=== PATIENT | male | born 1930 | race Caucasian/White ===

== ENCOUNTER 2016-03-20 18:06 | Emergency (ER) | payer OTHER, MEDICARE ==
[~2016-03-20] VITALS: Ht 167.6 cm; Wt 73.9 kg
[~2016-03-20 18:06] MED LIST: AMIODARONE HCL200 MG PO; ANTIVERT 25MG #1 PAC PO; CENTRUM SILVER1 TAB PO; DIGOX0.125 MG PO; LOSARTAN POTASS25 MG PO; METOPROLOL SUCC50 M1 PO; OMEGA-31000 MG PO; PRAVASTATIN SOD40 MG PO; VITAB121000 PO; VITAMIN D31000 IU PO; WARFARIN SODIUM1 MG PO
--- NOTE | 2016-03-20 18:45 | ED GENERAL ADULT ---
History of Present Illness General Chief Complaint: General Adult Stated Complaint: SENT BY FOR HIGH BP/ FELL IN [facility] Source: patient Exam Limitations: patient's age Vital Signs & Intake/Output Vital Signs & Intake/Output Vital Signs Date Time Temp Pulse Resp B/P Pulse O2 O2 Flow FiO2 Ox Delivery Rate 03/207 62 178/86 03/20 2057 96.4 59 18 184/88 95 Room Air 03/20 1904 97.0 78 20 206/95 96 Room Air 03/20 1827 97.7 77 20 167/88 96 Room Air Allergies Coded Allergies: NO KNOWN ALLERGIES (08/24/14) Reconcile Medications AMIODARONE HCL (Amiodarone HCl) 200 MG TABLET 1 TAB PO DAILY HEART (Reported) Carbidopa/Levodopa (Carbidopa-Levodopa 25-100 Tab) 25 MG-100 MG TABLET 1 TAB PO BID BALANCE (Reported) Cholecalciferol (Vitamin D3) (Unknown Strength) TAB (Unknown Dose) PO DAILY SUPPLEMENT (Reported) Cyanocobalamin (Vitamin B-12) (Unknown Strength) TABLET (Unknown Dose) PO DAILY SUPPLEMENT (Reported) Digoxin (Digox) 125 MCG TABLET 1 TAB PO EOD HEART (Reported) Losartan Potassium 25 MG TABLET 1 TAB PO DAILY BP (Reported) Losartan Potassium (Cozaar) 25 MG TABLET 1 TAB PO BID hypertension Metoprolol Succinate (Metoprolol Succinate XL) 50 MG TAB.ER.24H 1 TAB PO DAILY HEART/BP (Reported) Multivitamin and Ruthsyxy898 (Centrum Silver) 1 TAB TAB 1 TAB PO DAILY SUPPLEMENT (Reported) OMEGA-3 FATTY ACIDS/FISH OIL ([place] 3 1,000 MG Softgel) (Unknown Strength) CAPSULE (Unknown Dose) PO DAILY SUPPLEMENT (Reported) Pravastatin Sodium 40 MG TABLET 1 TAB PO QPM CHOLESTEROL (Reported) Warfarin Sodium 1 MG TABLET 1 TAB PO DAILY BLOOD THINNER (Reported) Triage Note: PT TO ED FOR C/O HTN. PT WENT TO URGENT CARE FOR HIGH BP. PT SENT TO ED FOR FURTHER EVAL OF BP. CURRENT BP 166/87. PT DENIES PAIN, C/P. ONLY COMPLAINT IS "FEELING GROGGY." PT ALSO STATES UPON WALKING INTO ED HE TRIPPED OVER THE CURB AND FELL, HITTING HIS HEAD ON THE GROUND. DENIED LOC. ABRASION NOTED ABOVE LEFT EYE AND TO RIGHT HAND. PT TAKES COUMADIN DAILY. LAST TETANUS SHOT A COUPLE YEARS AGO. Triage Nurses Notes Reviewed? yes Onset: Abrupt Duration: hour(s): Timing: recent history HPI: 03/20/16 7 PM 85-year-old man presents to the emergency department for elevated blood pressure. According to the patient he has a history of prostate cancer he is status post radiation therapy. Today he saw Dr. White and his PSA had come down but his blood pressure was noted to be elevated. He actually also went to an urgent care center for a medical appointment and his blood pressure was found to be elevated and it was recommended that he be checked in the Emergency Department. He has no chest pain no shortness of breath or other complaints. He is on Coumadin. He actually fell tripping on a curb on his way to the hospital. There was no chest pain, syncope, or other complaints. No neck pain. Because he is on Coumadin CT scan of the head was done which was negative. CT scan of the neck was negative. Troponin is negative EKG shows paced beats that are unchanged. The onset of the symptoms were abrupt, the duration was just today, the severity is significant as his symptoms required to come to the emergency department for care. His vital signs are stable, he's afebrile. He does have a moderately elevated blood pressure but is asymptomatic relative to this. His labs are unchanged and his troponin is negative. I will increase his Losartan and her will follow-up with his doctor this week. Past History Travel History Traveled to [place] past 21 day No Medical History Any Pertinent Medical History? 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 No Review of Systems Review of Systems Constitutional: Denies: fever. EENTM: Denies: visual changes, eye pain. Respiratory: Denies: short of breath. Cardiovascular: Denies: chest pain. GI: Denies: abdominal pain. Genitourinary: Reports: no symptoms. Musculoskeletal: Reports: no symptoms. Skin: Denies: rash. Neurological/Psychological: Denies: headache. Hematologic/Endocrine: Reports: bruising. Immunologic/Allergic: Reports: no symptoms. Physical Exam Physical Exam General Appearance: well developed/nourished, no apparent distress, alert, awake , anxious Head: contusions Eyes: Bilateral: normal appearance, PERRL, EOMI. Ears, Nose, Throat: normal pharynx Neck: normal inspection, supple, full range of motion Respiratory: normal breath sounds, chest non-tender, no respiratory distress Cardiovascular: regular rate/rhythm Peripheral Pulses: 4+ radial (R), 4+ radial (L) Gastrointestinal: non-tender Back: decreased range of motion Extremities: no edema Neurologic/Psych: no motor/sensory deficits, awake, alert, oriented x 3, normal gait Skin: intact, normal color, warm/dry Core Measures ACS in differential dx? No CVA/TIA Diagnosis: No Severe Sepsis Present: No Septic Shock Present: No Progress Differential Diagnoses I considered the following diagnoses in my evaluation of the patient: [ Intracranial bleed, skull fracture, hypertensive crisis, hypertensive urgency, asymptomatic hypertension] Plan of Care: Orders Procedure Date/time Status Add-on Test (ER Only) 03/20 2146 Active Add-on Test (ER Only) 03/20 2021 Active PARTIAL THROMBOPLASTIN TIME 03/20 1936 Complete DIGOXIN 03/20 1936 Complete PROTHROMBIN TIME 03/20 1926 Complete COMPREHENSIVE METABOLIC PANEL 03/20 1926 Complete CBC WITHOUT DIFFERENTIAL 03/20 1926 Complete EKG 03/20 1926 Active Current Medications Sig/Daniel Start time Last Medication Dose Stop Time Status Admin Losartan Potassium 25 MG ONCE ONE 03/20 2199 CAN (Cozaar) 03/20 2200 Laboratory Tests 03/20/161936: Anion Gap 13, Estimated GFR 48 L, BUN/Creatinine Ratio 21.4, Glucose 90, Calcium 9.3, Total Bilirubin 0.7, AST 67 H, ALT 81 H, Alkaline Phosphatase 70, Total Protein 7.1, Albumin 4.1, Globulin 3.0, Albumin/Globulin Ratio 1.4, PT 27.0 H, INR 2.60 H, APTT 35, CBC w Diff NO MAN DIFF REQ, RBC 3.91 L, MCV 102.9 H, MCH 34.4 H, RDW 14.2, MPV 7.8, Gran % 80.6 H, Lymphocytes % 10.3 L, Monocytes % 8.6, Eosinophils % 0.3, Basophils % 0.2, Absolute Granulocytes 4.7, Absolute Lymphocytes 0.6 L, Absolute Monocytes 0.5, Absolute Eosinophils 0, Absolute Basophils 0, PUBS MCHC 33.4, Digoxin 1.0 Initial ED EKG: paced rhythm Prior EKG: unchanged Departure Departure Disposition: HOME OR SELF CARE Condition: Stable Clinical Impression Primary Impression: Head injury Secondary Impressions: Hypertension Referrals: MARIA ELENA PELAEZ MD (PCP/Family) Departure Forms: Customer Survey General Discharge Information Prescriptions: Current Visit Scripts Losartan Potassium (Cozaar) 1 TAB PO BID #30 TAB Comments The patient's last blood pressure was 178/86. He remained asymptomatic in the ED. Head CT and labs were unremarkable. He will follow-up with his primary care doctor in the next 72 hours. Delayed head injury instructions were given. His head injury was secondary to a mechanical slip and fall. There was no chest pain. There was no shortness of breath. He does have chronic dizziness. There was no headache. Critical Care Note Critical Care Note Critical Care Time: non-applicable
[2016-03-20] MEDS ORDERED: CARBIDOPA-LEVO1 EAC7 PO (19:08)
[2016-03-20 19:49] LABS: ABSOLUTE BASOPHIL COUNT 0 /CUMM (0.0-0.2); ABSOLUTE EOSINOPHIL COUNT 0 /CUMM (0.0-0.7); ABSOLUTE GRANULOCYTE CT 4.7 /CUMM (1.4-6.5); ABSOLUTE LYMPH COUNT 0.6 /CUMM (1.2-3.4); ABSOLUTE MONOCYTE COUNT 0.5 /CUMM (0.10-0.60); BASOPHIL % 0.2 % (0.0-2.0); EOSINOPHIL % 0.3 % (0-5); GRANULOCYTE % 80.6 % (42.2-75.2); HEMATOCRIT 40.2 % (42-52); MEAN CORPUSCULAR HGB 34.4 PG (27.0-31.0); MEAN CORPUSCULAR HGB CONC 33.4 G/DL (33.0-37.0); MEAN CORPUSCULAR VOLUME 102.9 FL (80.0-94.0); MEAN PLATELET VOLUME 7.8 FL (7.4-10.4); PLATELET COUNT 204 /CUMM (130-400); RBC DISTRIBUTION WIDTH 14.2 % (11.5-14.5); RED BLOOD CELL CT 3.91 /CUMM (4.70-6.10); WHITE BLOOD CELL COUNT 5.8 /CUMM (4.8-10.8)
--- NOTE | 2016-03-20 20:20 | CT SCAN REPORT ---
EXAMINATION: CT HEAD WITHOUT CONTRAST CLINICAL INFORMATION: Head trauma on Coumadin. COMPARISON: CT head 08/24/2014 TECHNIQUE: Contiguous axial imaging was performed from the skull base to vertex without intravenous administration of contrast. FINDINGS: There is no evidence of acute intracranial hemorrhage or territorial infarction. No abnormal mass effect or midline shift is seen. Mcfarland to white matter differentiation is well preserved. No extra-axial fluid collections are identified. There is atrophy with prominence of the ventricles and the sulci and hypodensity of the periventricular white matter due to chronic small vessel ischemic disease. There is vascular calcifications of the internal carotid arteries bilaterally. The osseous structures and soft tissues are normal. The mastoid air cells and visualized portions of the paranasal sinuses are well aerated. IMPRESSION: No acute intracranial pathology.
--- NOTE | 2016-03-20 20:31 | CT SCAN REPORT ---
EXAMINATION: CT CERVICAL SPINE WITHOUT CONTRAST CLINICAL INFORMATION: Trauma. COMPARISON: Thoracic spine 09/18/2006. TECHNIQUE: Axial images through cervical spine. Coronal and sagittal reformatted images performed at CT scanner FINDINGS: No acute change. No fracture. No subluxation. No prevertebral soft tissue swelling. Multilevel degenerative change. There are subchondral cystic changes of the dens at C1-C2 articulation. Marked disc height narrowing at C2-C3 with endplate spurs and subchondral sclerosis of bone. There is bony fusion of C3-C6. Orthopedic plate and screw at C5 and C6 anteriorly. Vacuum disc phenomenon C6-C7. Fusion of C7-T1 vertebrae. Disc height narrowing at T1-T2. Vacuum disc phenomena with minimal anterolisthesis at T2-T3. Multilevel degenerative facet joint arthrosis. There is been resection of the posterior spinous process with laminectomy at C6. Posterior spinous process of T2 not seen may be surgically resected as well. Correlate with history. IMPRESSION: No acute change. Multilevel degenerative change of the spine. Postsurgical changes of cervical spine.
[2016-03-20 20:44] LABS: PTT 35 SEC (25-37)
[2016-03-20] MEDS ORDERED: COZAAR25 M1 PO (21:27)
[2016-03-20 21:47] VITALS: BP 178/86
== END 2016-03-20 21:48 ==
LOC: ERH 18:06
PROVIDERS: Emergency Medicine
DX: S09.90XA Unspecified injury of head, initial encounter (principal); I10 Essential (primary) hypertension; Z79.01 Long term (current) use of anticoagulants; W18.09XA Striking against other object with subsequent fall, initial encounter; E78.5 Hyperlipidemia, unspecified; Z95.0 Presence of cardiac pacemaker; Z79.899 Other long term (current) drug therapy
CPT/HCPCS: 93005; 93010

== ENCOUNTER 2017-10-11 09:42 | Inpatient (IN) | payer OTHER, MEDICARE ==
[~2017-10-11] VITALS: Ht 167.6 cm; Wt 72.6 kg
[~2017-10-11 09:42] MED LIST changes: +CARBIDOPA-LEVO1 EAC7 PO; +CENTRUM SILVER1 EAC3 PO; -CENTRUM SILVER1 TAB PO; +COUMADIN1 M1 PO; +COZAAR25 M1 PO; -DIGOX0.125 MG PO; +DIGOXIN125 MCG PO; -LOSARTAN POTASS25 MG PO; -METOPROLOL SUCC50 M1 PO; +METOPROLOL SUCC50 M2 PO; +OMEGA 3 1,0001 EACH PO; -OMEGA-31000 MG PO; +PRAVASTATIN SOD40 M2 PO; -PRAVASTATIN SOD40 MG PO; -VITAB121000 PO; +VITAMIN B-121000 MC3 PO; -VITAMIN D31000 IU PO; +VITAMIN D31000 UNI1 PO; -WARFARIN SODIUM1 MG PO
--- NOTE | 2017-10-11 10:40 | ED GENERAL ADULT ---
History of Present Illness General Chief Complaint: General Adult Stated Complaint: ? RECTAL BLEEDING Source: patient Exam Limitations: no limitations Vital Signs & Intake/Output Vital Signs & Intake/Output Vital Signs Date Time Temp Pulse Resp B/P B/P Pulse O2 O2 Flow FiO2 Mean Ox Delivery Rate 10/11 1134 98.4 84 17 149/75 99 Room Air 10/11 0948 97.8 90 18 130/80 97 Room Air Room Air Allergies Coded Allergies: NO KNOWN ALLERGIES (08/24/14) Reconcile Medications Carbidopa/Levodopa (Carbidopa-Levodopa 25-100 Tab) 25 MG-100 MG TABLET 1 TAB PO BID BALANCE (Reported) Cholecalciferol (Vitamin D3) (Vitamin D3) (Unknown Strength) CAPSULE (Unknown Dose) PO DAILY SUPPLEMENT (Reported) Cyanocobalamin (Vitamin B-12) (Unknown Strength) TABLET (Unknown Dose) PO DAILY SUPPLEMENT (Reported) Digoxin 125 MCG TABLET 1 TAB PO EOD HEART (Reported) Furosemide (Lasix) 40 MG TABLET 1 TAB PO DAILY DIURETIC (Reported) Gluc 2KCL/Chondr/Tiffany Hy/Hy AC (Glucosamine & Chondroitin Cap) (Unknown Strength ) CAPSULE (Unknown Dose) PO DAILY SUPPLEMENT (Reported) Losartan Potassium (Cozaar) 25 MG TABLET 1 TAB PO DAILY BP (Reported) Metoprolol Succinate 50 MG TAB.ER.24H 1.5 TAB PO DAILY HEART/BP (Reported) Multivit-Min/FA/Lycopen/Lutein (Centrum Silver Tablet) 0.4 MG-300 MCG-250 MCG TABLET 1 TAB PO DAILY SUPPLEMENT (Reported) [place]iqua-3 Fatty Acids/Fish Oil ([place] 3 1,000 MG Softgel) (Unknown Strength) CAPSULE (Unknown Dose) PO TID SUPPLEMENT (Reported) Pravastatin Sodium 40 MG TABLET 1 TAB PO DAILY CHOLESTEROL (Reported) Sacubitril/Valsartan (Entresto 49 MG-51 MG Tablet) 49 MG-51 MG TABLET 1 TAB PO BID HEART (Reported) Warfarin Sodium (Coumadin) 1 MG TABLET 1 TAB PO AD BLOOD THINNER (Reported) Triage Note: TRIAGE: 87 Y/O MALE PRESENTS C/O DARK RED RECTAL BLEEDING SINCE THIS MORNING. DENIES HISTORY OF SIMILAR. PMHX OF AFIB. HAS A DEFIB. ON COUMADIN: 1MG DAILY, WITH EXCEPTION OF 2MG ON MONDAYS AND SATURDAYS Triage Nurses Notes Reviewed? yes HPI: 87-year-old male comes in complaining that he woke up with blood in his underpants. The patient is on Coumadin for A. fib. He denies being dizzy or lightheaded. The patient denies abdominal pain, nausea, vomiting. The patient denies fever or chills. The patient denies any history of GI bleed or hemorrhoids. Past History Travel History Traveled to [place] past 21 day No Medical History Any Pertinent Medical History? 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 Yes Review of Systems Review of Systems Constitutional: Denies: chills, diaphoresis, fever. EENTM: Denies: blurred vision, double vision, visual changes. Respiratory: Denies: cough, hemoptysis, orthopnea. Cardiovascular: Denies: chest pain, edema, orthopena. GI: Reports: bloody stool. Denies: abdominal pain, bloating, constipation. Genitourinary: Denies: discharge, dysuria, frequency, hematuria. Musculoskeletal: Denies: back pain, gout. Skin: Denies: cysts, change in skin color, change in hair/nails. Neurological/Psychological: Denies: anxiety, ataxia, cognitive dysfunction. Physical Exam Physical Exam General Appearance: well developed/nourished, no apparent distress, alert, awake Head: atraumatic, normal appearance Eyes: Bilateral: PERRL, EOMI. Ears, Nose, Throat: normal pharynx, normal ENT inspection Neck: normal inspection, supple Respiratory: normal breath sounds, chest non-tender, no respiratory distress Cardiovascular: regular rate/rhythm, edema Gastrointestinal: normal bowel sounds, soft, non-tender Rectal: normal rectal tone, blood streaked stool Extremities: normal inspection, normal capillary refill Neurologic/Psych: no motor/sensory deficits, awake, alert, oriented x 3 Skin: intact, normal color, warm/dry Core Measures ACS in differential dx? No CVA/TIA Diagnosis: No Sepsis Present: No Sepsis Focused Exam Completed? No Progress Differential Diagnoses 87-year-old presents with rectal bleed, he is on Coumadin. Vital signs are currently stable. We will check INR and hemoglobin. Plan of Care: Orders Procedure Date/time Status Nothing by Mouth 10/11 D Active ED Holding Orders 10/11 1207 Active Admit to inpatient 10/11 1207 Active Code Status 10/11 1207 Active TROPONIN LEVEL 10/11 1041 Complete PROTHROMBIN TIME 10/11 1041 Complete COMPREHENSIVE METABOLIC PANEL 10/11 1041 Complete CBC WITHOUT DIFFERENTIAL 10/11 1041 Complete TYPE & SCREEN (NOT X-MATCH) 10/11 1041 Complete EKG 10/11 1017 Active Current Medications Sig/Daniel Start time Last Medication Dose Stop Time Status Admin Sodium Chloride 1,000 ML Q10H 10/11 1045 AC 10/11 (Normal Saline 0.9%) 1048 Laboratory Tests 10/11/17 1040: Anion Gap 10, Estimated GFR 52 L, BUN/Creatinine Ratio 21.5, Glucose 104 H, Calcium 9.2, Total Bilirubin 0.5, AST 27, ALT 19 L, Alkaline Phosphatase 57, Troponin I 0.01, Total Protein 6.4, Albumin 3.6, Globulin 2.8, Albumin/Globulin Ratio 1.3, PT 20.9 H, INR 1.90 H, CBC w Diff NO MAN DIFF REQ, RBC 3.51 L, MCV 104.5 H, MCH 35.1 H, MCHC 33.5, RDW 13.8, MPV 8.5, Gran % 65.4, Lymphocytes % 21.0, Monocytes % 11.8 H, Eosinophils % 1.4, Basophils % 0.4, Absolute Granulocytes 3.1, Absolute Lymphocytes 1.0 L, Absolute Monocytes 0.6, Absolute Eosinophils 0.1, Absolute Basophils 0 Initial ED EKG: see below Comments: a fib, rate @ 80, changes consistent with pacing. Compared to the EKG from March 20, 2016: No significant changes. 1207 stable blood pressure, stable hemoglobin. Will admit the patient. We will not give FFP's because that might precipitate a stroke. We will admit him to the hospitalist service. Departure Departure Disposition: STILL A PATIENT Condition: Stable Clinical Impression Primary Impression: GI bleed Referrals: Dorian Fuentes MD (PCP/Family) Departure Forms: Customer Survey General Discharge Information Admission Note Spoke With: Antonio Marr MD Documentation of Exam: Documentation of any treatments & extenuating circumstances including Concerns Regarding Discharge (functional status, medication knowledge or non-compliance, living conditions, etc.) that warrant an admission rather than observation: GI bleed on Coumadin, likely needing colonoscopy Critical Care Note Critical Care Note Critical Care Time: non-applicable
[2017-10-11] MEDS ORDERED: ENTRESTO 49 MG1 EACH PO (11:00)
[2017-10-11] MEDS ORDERED: LASIX40 M1 PO (11:01)
[2017-10-11 11:05] LABS: ABSOLUTE BASOPHIL COUNT 0 /CUMM (0.0-0.2); ABSOLUTE EOSINOPHIL COUNT 0.1 /CUMM (0.0-0.7); ABSOLUTE GRANULOCYTE CT 3.1 /CUMM (1.4-6.5); ABSOLUTE MONOCYTE COUNT 0.6 /CUMM (0.10-0.60); BASOPHIL % 0.4 % (0.0-2.0); EOSINOPHIL % 1.4 % (0-5); GRANULOCYTE % 65.4 % (42.2-75.2); HEMATOCRIT 36.6 % (42-52); MEAN CORPUSCULAR HGB 35.1 PG (27.0-31.0); MEAN CORPUSCULAR HGB CONC 33.5 G/DL (33.0-37.0); MEAN CORPUSCULAR VOLUME 104.5 FL (80.0-94.0); MEAN PLATELET VOLUME 8.5 FL (7.4-10.4); PLATELET COUNT 185 /CUMM (130-400); RBC DISTRIBUTION WIDTH 13.8 % (11.5-14.5); RED BLOOD CELL CT 3.51 /CUMM (4.70-6.10); WHITE BLOOD CELL COUNT 4.7 /CUMM (4.8-10.8)
[2017-10-11] MEDS ORDERED: GLUCOSAMINE &1 EAC1 PO (11:05)
[2017-10-11 11:20] LABS: PT 20.9 SEC (9.4-12.5)
--- NOTE | 2017-10-11 13:10 | History & Physical ---
Francia JOSE,[facility] 10/11/17 1310: General Information and HPI MD Statement: I have seen and personally examined LOS MUKHERJEE and documented this H&P. The patient is a 87 year old M who presented with a patient stated chief complaint of [Rectal bleed]. Source of Information: patient, family, old records Exam Limitations: no limitations History of Present Illness: Mr. 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 Patient reported regular health state until this morning when he woke up and found small spot of bright red blood in his underwear. Patient denied any previous history of rectal bleeding or hemorrhoids. Denied any abdominal pain, history of diarrhea or constipation however reported loose stools over the last couple of days. No change in the stool caliber or melena. Patient denied any history of weight loss, unexplained fatigue or weakness. His last colonoscopy was over 25 years ago and was normal. Patient denied any family history of colon cancer. Patient is on Coumadin for atrial fibrillation, INR was 1.4 on Friday and was asked to take 2 mg instead of 1 mg on Friday, patient reported taking warfarin 1 mg for the rest of the week. Patient denied any dizziness, palpitation, shortness of breath, chest pain. Allergies/Medications Allergies: Coded Allergies: NO KNOWN ALLERGIES (08/24/14) Past History Travel History Traveled to [place] past 21 day No Medical History Neurological: NONE EENT: cataracts, DRY EYES Cardiovascular: hypertension, hyperlipidemia, PACEMAKER/DEFIBRILLATOR Respiratory: NONE Gastrointestinal: irritable bowel syndrome Hepatic: NONE Renal: TUMOR ON KIDNEY/REMOVED ONLY HAS 1 FUNCTIONING KIDNEY Musculoskeletal: disk herniation, falls, spinal stenosis Psychiatric: insomnia Endocrine: NONE Blood Disorders: NONE Cancer(s): prostate cancer, R. 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 Denies: chills, fever, malaise, weakness. EENTM: Denies: blurred vision, double vision. Cardiovascular: Denies: chest pain, orthopena, palpitations, syncope. Respiratory: Denies: cough, short of breath. GI: Denies: abdominal pain, bloating, constipation, diarrhea, melena, nausea, bloody stool, vomiting. Genitourinary: Denies: dysuria, hematuria, hesitation. Musculoskeletal: Denies: back pain, joint pain, joint swelling, muscle pain. Skin: Denies: change in skin color, change in hair/nails. Neurological/Psychological: Denies: anxiety, confusion, depressed, dementia, headache, numbness. Hematologic/Endocrine: Denies: bruising, bleeding, polyuria. Exam & Diagnostic Data Last 24 Hrs of Vital Signs/I&O Vital Signs Date Time Temp Pulse Resp B/P B/P Pulse O2 O2 Flow FiO2 Mean Ox Delivery Rate 10/11 1402 97.8 99 19 141/90 99 Room Air 10/11 1134 98.4 84 17 149/75 99 Room Air 10/11 0948 97.8 90 18 130/80 97 Room Air Room Air Intake & Output 10/11 1600 10/11 0800 10/11 0000 Intake Total Output Total Balance Patient 72.575 kg Weight Weight Reported by Patient Measurement Method Physical Exam General Appearance Alert, Oriented X3, Cooperative, No Acute Distress Skin No Rashes, No Breakdown, No Significant Lesion Skin Temp/Moisture Exam: Warm/Dry HEENT Atraumatic, PERRLA, EOMI, Mucous Membr. moist/pink Neck Supple, No JVD Cardiovascular Normal S1, Normal S2, No Murmurs, irregular irregular Lungs Clear to Auscultation, Normal Air Movement Abdomen Normal Bowel Sounds, Soft, No Tenderness Neurological Normal Speech, Strength at 5/5 X4 Ext, Normal Tone, Sensation Intact, Cranial Nerves 3-12 NL, Reflexes 2+ Extremities No Clubbing, No Cyanosis, Normal Pulses, bilateral +1 pedal edema Assessment/Plan Assessment: Mr. Mukherjee is 87-year-old male with past medical history significant for hypertension, hyperlipidemia, permanent atrial fibrillation on Coumadin, sick sinus syndrome s/p permanent pacemaker, defibrillator, aortic valve replacement bovine valve in 2013, congestive heart failure on Entresto, remote history of renal cancer s/p right nephrectomy, prostate cancer status post radiotherapy, spinal stenosis, Parkinson's disease who presented to ED with chief complaint of new onset rectal bleed. OK examination was done by the ED doctor, no signs of mass. guaiac positive On admission Vital signs temperature 97.8, pulse 90 irregular, respiratory rate 18 saturating 97% room air, blood pressure 130/80 Labs were pertinent to H&H 12.3/36.6 at baseline, sodium 141, potassium 4.5, BUN /creatinine 28/1.3 baseline creatinine, INR 1.9 tropes negative Problem list Hematochezia Atrial fibrillation on Coumadin Congestive heart failure on Entresto Aortic valve replacement bovine valve 2012 not on antiplatelet Hypertension and hyperlipidemia Plan -Admit to general medical floor -Vitals every shift -Strict ins and outs -Guaiac all stool -N.p.o. for possible colonoscopy -GI consultation was placed -Monitor CBC closely -At this point patient has only minimal rectal bleed with stable vital signs and stable hemoglobin, his [id number] score is 4 points which represent 4.8% risk of stroke moderate to high risk. I feel that patient stroke risk outweigh bleeding risk at this point and he should be anticoagulated. -Will order warfarin 1 mg -Monitor for any sign of bleeding -Repeat CBC at 10 PM tonight -Obtain cardiology consultation -Continue home medication was confirmed by the pharmacy [facility] at [place] -DVT prophylaxis warfarin, Alps -Diet n.p.o. pending colonoscopy -Code full As Ranked By This Provider Problem List: 1. GI bleed 2. Hypertension 3. Afib Core Measures/Misc (12/01) Acute Coronary Syndrome ACS Diagnosis: No Congestive Heart Failure Congestive Heart Failure Diagnosis No Cerebrovascular Accident CVA/TIA Diagnosis: No VTE (View Protocol) VTE Risk Factors Age>40 No Mechanical VTE Prophylaxis d/t Physical Contraindication No VTE Pharm Prophylaxis d/t Medical Contraindication Sepsis (View protocol) Sepsis Present: No If YES complete Sepsis Event Note If YES complete Sepsis Event Note Antonio Marr 10/11/17 1330: General Information and HPI Allergies/Medications Home Med list Carbidopa/Levodopa (Carbidopa-Levodopa 25-100 Tab) 25 MG-100 MG TABLET 1 TAB PO TID BALANCE (Reported) Cholecalciferol (Vitamin D3) (Vitamin D3) (Unknown Strength) CAPSULE (Unknown Dose) PO DAILY SUPPLEMENT (Reported) Cyanocobalamin (Vitamin B-12) (Unknown Strength) TABLET (Unknown Dose) PO DAILY SUPPLEMENT (Reported) Digoxin 125 MCG TABLET 1 TAB PO Q48 HEART (Reported) Furosemide (Lasix) 20 MG TABLET 1 TAB PO DAILY WATER RETENTION (Reported) Gluc 2KCL/Chondr/Tiffany Hy/Hy AC (Glucosamine & Chondroitin Cap) (Unknown Strength ) CAPSULE (Unknown Dose) PO DAILY SUPPLEMENT (Reported) Metoprolol Succinate 50 MG TAB.ER.24H 1.5 TAB PO DAILY HEART/BP (Reported) Multivit-Min/FA/Lycopen/Lutein (Centrum Silver Tablet) 0.4 MG-300 MCG-250 MCG TABLET 1 TAB PO DAILY SUPPLEMENT (Reported) [place]-3 Fatty Acids/Fish Oil ([place] 3 1,000 MG Softgel) (Unknown Strength) CAPSULE (Unknown Dose) PO TID SUPPLEMENT (Reported) Pravastatin Sodium 40 MG TABLET 1 TAB PO DAILY CHOLESTEROL (Reported) Sacubitril/Valsartan (Entresto 49 MG-51 MG Tablet) 49 MG-51 MG TABLET 1 TAB PO BID HEART (Reported) Warfarin Sodium (Coumadin) 1 MG TABLET 1 TAB PO AD BLOOD THINNER (Reported) Core Measures/Misc (12/01) Sepsis (View protocol) If YES complete Sepsis Event Note If YES complete Sepsis Event Note Attending MD Review Statement Attending Statement Attending MD Statement: examined this patient, discuss w/resident/PA/GOVERNMENT AUDITOR, agreed w/resident/PA/GOVERNMENT AUDITOR, discussed with family, reviewed EMR data (avail), discussed with nursing, discussed with case mgmt, reviewed images, amended to note Attending Assessment/Plan: Agree with above. Not life threatnenig bleed. Obtain GI consult and inform cardiology. Continue with coumadin for now. Monitor cbc and INR. Monitor hemodynamics.
[2017-10-11] MEDS ORDERED: LASIX20 M1 PO (13:55)
[2017-10-11 15:15] VITALS: BP 132/68
--- NOTE | 2017-10-11 16:57 | Cons- Gastroenterology ---
General Information and HPI Consulting Request Date of Consult: 10/11/17 Requested By: Antonio Marr MD Reason for Consult: 1. Rectal bleeding 2. Long-term use of anticoagulants 3. Acute blood loss anemia Source of Information: patient, electronic medical record Exam Limitations: poor historian History of Present Illness: Mr. 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 Mr. Pepe noted on the morning of admission red blood in his underwear and bedsheets. Patient denies nausea, vomiting, or abdominal pain. He has no constipation and was not straining at stool in the days prior to this event. He has however noticed increasing loose stools over the last couple of days prior to admission. He is had no weight loss, fever, shaking chills or malaise. Allergies/Medications Allergies: Coded Allergies: NO KNOWN ALLERGIES (08/24/14) Home Med List: Carbidopa/Levodopa (Carbidopa-Levodopa 25-100 Tab) 25 MG-100 MG TABLET 1 TAB PO TID BALANCE (Reported) Cholecalciferol (Vitamin D3) (Vitamin D3) (Unknown Strength) CAPSULE (Unknown Dose) PO DAILY SUPPLEMENT (Reported) Cyanocobalamin (Vitamin B-12) (Unknown Strength) TABLET (Unknown Dose) PO DAILY SUPPLEMENT (Reported) Digoxin 125 MCG TABLET 1 TAB PO Q48 HEART (Reported) Furosemide (Lasix) 20 MG TABLET 1 TAB PO DAILY WATER RETENTION (Reported) Gluc 2KCL/Chondr/Tiffany Hy/Hy AC (Glucosamine & Chondroitin Cap) (Unknown Strength ) CAPSULE (Unknown Dose) PO DAILY SUPPLEMENT (Reported) Metoprolol Succinate 50 MG TAB.ER.24H 1.5 TAB PO DAILY HEART/BP (Reported) Multivit-Min/FA/Lycopen/Lutein (Centrum Silver Tablet) 0.4 MG-300 MCG-250 MCG TABLET 1 TAB PO DAILY SUPPLEMENT (Reported) [place]-3 Fatty Acids/Fish Oil ([place] 3 1,000 MG Softgel) (Unknown Strength) CAPSULE (Unknown Dose) PO TID SUPPLEMENT (Reported) Pravastatin Sodium 40 MG TABLET 1 TAB PO DAILY CHOLESTEROL (Reported) Sacubitril/Valsartan (Entresto 49 MG-51 MG Tablet) 49 MG-51 MG TABLET 1 TAB PO BID HEART (Reported) Warfarin Sodium (Coumadin) 1 MG TABLET 1 TAB PO AD BLOOD THINNER (Reported) Current Medications: Current Medications Sig/Daniel Start time Last Medication Dose Route Stop Time Status Admin Acetaminophen 650 MG Q6P PRN 10/11 1315 AC PO Carbidopa/Levodopa 1 TAB TID 10/11 1400 AC 10/11 PO 1436 Furosemide 20 MG DAILY 10/12 0900 AC PO Heparin Sodium 25,000 UNIT Q24H 10/11 1615 AC (Porcine) IV Sodium Chloride 500 ML Metoprolol Succinate 75 MG DAILY 10/11 1356 AC 10/11 PO 1436 Non-Formulary 0 SEE ADMIN CRITERIA 10/11 1400 CAN Medication ANY Pravastatin Sodium 40 MG DAILY 10/11 1357 AC 10/11 PO 1436 Sacubitril/Valsartan 1 TAB BID 10/11 2100 AC PO Sodium Chloride 1,000 ML Q10H 10/11 1045 DC 10/11 IV 1048 Warfarin Sodium 1 MG COUMADIN 1700 ONE 10/11 1700 CAN PO 10/11 1701 Past History Travel History Traveled to [place] past 21 day No Medical History Blood Transfusion Hx: Yes Neurological: Parkinson's disease EENT: cataracts, DRY EYES Cardiovascular: hypertension, hyperlipidemia, PACEMAKER/DEFIBRILLATOR Respiratory: NONE Gastrointestinal: irritable bowel syndrome Hepatic: NONE Renal: TUMOR ON KIDNEY/REMOVED ONLY HAS 1 FUNCTIONING KIDNEY Musculoskeletal: disk herniation, falls, spinal stenosis Psychiatric: insomnia Endocrine: NONE Blood Disorders: NONE Cancer(s): prostate cancer, 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 EENTM: Reports: no symptoms. Cardiovascular: Reports: see HPI. Respiratory: Reports: no symptoms. GI: Reports: see HPI. Genitourinary: Reports: no symptoms. Musculoskeletal: Reports: see HPI. Skin: Reports: no symptoms. Neurological/Psychological: Reports: no symptoms. Exam & Diagnostic Data Vital Signs and I&O Vital Signs Date Time Temp Pulse Resp B/P B/P Pulse O2 O2 Flow FiO2 Mean Ox Delivery Rate 10/11 1515 97.6 94 20 132/68 97 Room Air 10/11 1436 97.8 99 19 141/90 10/11 1402 97.8 99 19 141/90 99 Room Air 10/11 1134 98.4 84 17 149/75 99 Room Air 10/11 0948 97.8 90 18 130/80 97 Room Air Room Air Intake & Output 10/11 0400 10/10 0400 10/09 0400 Intake Total 447.7 Output Total 300 Balance 147.7 Intake, IV 147.7 Intake, Oral 300 Number 1 Bowel Movements Output, Urine 300 Patient 161 lb Weight Weight Reported by Patient Measurement Method Physical Exam General Appearance: well developed/nourished, no apparent distress, comfortable Head: atraumatic, normal appearance Eyes: Bilateral: normal appearance. Ears, Nose, Throat: hearing grossly normal Neck: normal inspection, supple, full range of motion Respiratory: normal breath sounds, chest non-tender, no respiratory distress, lungs clear Cardiovascular: irregularly irregular, normal S1, S2, no rub, murmur, or gallop. , there is a median sternotomy scar. Gastrointestinal: normal bowel sounds, soft, non-tender, no organomegaly Rectal: brown stool with red blood admixed in it. There is normal tone and no masses are appreciated. There are no external hemorrhoids. Back: normal inspection Extremities: right hand deformity Neurologic/Psych: awake, alert, oriented x 3 Cranial Nerves: normal hearing, normal speech Skin: intact, normal color, warm/dry Results Pertinent Lab Results: Laboratory Tests 10/11 1040 Chemistry Sodium (137 - 145 mmol/L) 141 Potassium (3.5 - 5.1 mmol/L) 4.5 Chloride (98 - 107 mmol/L) 103 Carbon Dioxide (22 - 30 mmol/L) 28 Anion Gap (5 - 16) 10 BUN (9 - 20 mg/dL) 28 H Creatinine (0.7 - 1.2 mg/dL) 1.3 H Estimated GFR (>60 ml/min) 52 L BUN/Creatinine Ratio (7 - 25 %) 21.5 Glucose (65 - 99 mg/dL) 104 H Calcium (8.4 - 10.2 mg/dL) 9.2 Total Bilirubin (0.2 - 1.3 mg/dL) 0.5 AST (17 - 59 U/L) 27 ALT (21 - 72 U/L) 19 L Alkaline Phosphatase (< 127 U/L) 57 Troponin I (<0.11 ng/ml) 0.01 Total Protein (6.3 - 8.2 g/dL) 6.4 Albumin (3.5 - 5.0 g/dL) 3.6 Globulin (1.9 - 4.2 gm/dL) 2.8 Albumin/Globulin Ratio (1.1 - 2.2 %) 1.3 Coagulation PT (9.4 - 12.5 SEC) 20.9 H INR (0.90 - 1.17) 1.90 H Hematology CBC w Diff NO MAN DIFF REQ WBC (4.8 - 10.8 /CUMM) 4.7 L RBC (4.70 - 6.10 /CUMM) 3.51 L Hgb (14.0 - 18.0 G/DL) 12.3 L Hct (42 - 52 %) 36.6 L MCV (80.0 - 94.0 FL) 104.5 H MCH (27.0 - 31.0 PG) 35.1 H MCHC (33.0 - 37.0 G/DL) 33.5 RDW (11.5 - 14.5 %) 13.8 Plt Count (130 - 400 /CUMM) 185 MPV (7.4 - 10.4 FL) 8.5 Gran % (42.2 - 75.2 %) 65.4 Lymphocytes % (20.5 - 51.1 %) 21.0 Monocytes % (1.7 - 9.3 %) 11.8 H Eosinophils % (0 - 5 %) 1.4 Basophils % (0.0 - 2.0 %) 0.4 Absolute Granulocytes (1.4 - 6.5 /CUMM) 3.1 Absolute Lymphocytes (1.2 - 3.4 /CUMM) 1.0 L Absolute Monocytes (0.10 - 0.60 /CUMM) 0.6 Absolute Eosinophils (0.0 - 0.7 /CUMM) 0.1 Absolute Basophils (0.0 - 0.2 /CUMM) 0 Assessment/Plan Assessment/Recommendations: ASSESMENT: 1. Rectal bleeding 2. Long-term use of anticoagulants 3. Acute blood loss anemia 4. Macrocytic anemia 5. S/P aortic valve replacement 6. Atrial fibrillation 7. Personal history of renal cell carcinoma 8. Personal history of prostate cancer status post radiation therapy RECOMMENDATIONS: 1. Patient must remain on anticoagulation given aortic valve replacement as well as atrial fibrillation. I spoke with Dr. Marr and suggested that he speak with Dr. Ware regarding anticoagulation. 2. I plan to do a colonoscopy on Friday. I suggest the patient be bridged with either heparin and or Lovenox prior to procedure. I discussed with the patient that I plan to do a colonoscopy which he has not had for over 25 years. It is quite possible that bleeding may be related to radiation proctitis however more proximal causes must be ruled out. 3. Given that patient has macrocytic anemia B12 and folate should be checked. 4. Monitor for signs of ongoing GI blood loss and transfuse as needed 5. Patient may start clear liquid diet. 6. Dulcolax 2 tablets by mouth now and 2 tablets by mouth in a.m. on Friday 7. Patient will have GoLYTELY 2 L at 4 PM on Friday and at 4 AM on Friday. 8. Patient will also have Dulcolax 2 tablets at bedtime on Friday night. 9. Patient will remain nothing by mouth after last 2 L of GoLYTELY on Friday for colonoscopy Friday. Consult Acknowledgment - Thank you for your consult request.
[2017-10-11 18:23] LABS: PTT 36 SEC (25-37)
[2017-10-11 22:23] VITALS: BP 110/80
[2017-10-11 22:39] LABS: ABSOLUTE BASOPHIL COUNT 0 /CUMM (0.0-0.2); ABSOLUTE EOSINOPHIL COUNT 0 /CUMM (0.0-0.7); ABSOLUTE GRANULOCYTE CT 3.1 /CUMM (1.4-6.5); ABSOLUTE LYMPH COUNT 1.3 /CUMM (1.2-3.4); ABSOLUTE MONOCYTE COUNT 0.6 /CUMM (0.10-0.60); BASOPHIL % 0.3 % (0.0-2.0); EOSINOPHIL % 0.8 % (0-5); GRANULOCYTE % 61.8 % (42.2-75.2); HEMATOCRIT 36.8 % (42-52); MEAN CORPUSCULAR HGB 35.4 PG (27.0-31.0); MEAN CORPUSCULAR HGB CONC 34.4 G/DL (33.0-37.0); MEAN CORPUSCULAR VOLUME 102.9 FL (80.0-94.0); MEAN PLATELET VOLUME 8.5 FL (7.4-10.4); PLATELET COUNT 184 /CUMM (130-400); RBC DISTRIBUTION WIDTH 13.9 % (11.5-14.5); RED BLOOD CELL CT 3.58 /CUMM (4.70-6.10); WHITE BLOOD CELL COUNT 5.1 /CUMM (4.8-10.8)
[2017-10-12 02:02] LABS: PTT 102 SEC (25-37)
[2017-10-12 06:20] VITALS: BP 118/62
--- NOTE | 2017-10-12 08:08 | PN- Housestaff ---
See Addendum Subjective Follow-up For: Rectal bleed Complaints: no complaints Subjective: Patient seen and examined at the bedside. Patient in good spirits, enjoying his clear liquid diet. Preparing for colonoscopy tomorrow. No acute events overnight, no complaints. Denies any pain. Denies fever/chills/night sweats/ chest pain/abdominal pain/urinary symptoms. Review of Systems Constitutional: Reports: see HPI. Objective Last 24 Hrs of Vital Signs/I&O Vital Signs Date Time Temp Pulse Resp B/P B/P Pulse O2 O2 Flow FiO2 Mean Ox Delivery Rate 10/12 0900 Room Air 10/12 0814 90 118/62 10/12 0620 98.0 90 18 118/62 95 Room Air 10/11 2223 98.3 76 18 110/80 96 10/11 1515 97.6 94 20 132/68 97 Room Air 10/11 1436 97.8 99 19 141/90 10/11 1402 97.8 99 19 141/90 99 Room Air Intake & Output 10/12 1600 10/12 0800 10/12 0000 Intake Total 275 204 Output Total 300 650 Balance -25 -446 Intake, IV 175 104 Intake, Oral 100 100 Number 1 2 Bowel Movements Output, Urine 300 650 Physical Exam General Appearance: Alert, Oriented X3, Cooperative, No Acute Distress Skin: No Rashes, No Breakdown, No Significant Lesion Skin Temp/Moisture Exam: Warm/Dry HEENT: Atraumatic, PERRLA, EOMI, Mucous Membr. moist/pink Neck: Supple, No JVD Lymphatic: Axillary nl, Cervical nl Cardiovascular: Regular Rate, Normal S1, Normal S2, irregular irregular Lungs: Clear to Auscultation, Normal Air Movement Abdomen: Soft, No Tenderness Neurological: Normal Speech, Strength at 5/5 X4 Ext, Normal Tone, Sensation Intact, Cranial Nerves 3-12 NL Extremities: No Clubbing, No Cyanosis, Normal Pulses, No Tenderness/Swelling, bilateral pedal edema, +1 Current Medications: Current Medications Sig/Daniel Start time Last Medication Dose Route Stop Time Status Admin Acetaminophen 650 MG Q6P PRN 10/11 1315 AC PO Bisacodyl 10 MG AT BEDTIME 10/12 2100 DC PO Bisacodyl 10 MG ONCE ONE 10/13 1999 AC PO 10/12 2000 Bisacodyl 10 MG ONE TIME ONE 10/12 1030 DC PO 10/12 1031 Bisacodyl 10 MG BID 10/11 2100 DC 10/12 PO 10/12 0901 0815 Carbidopa/Levodopa 1 TAB TID 10/11 1400 AC 10/12 PO 0815 Furosemide 20 MG DAILY 10/12 0900 AC 10/12 PO 0815 Heparin Sodium 25,000 UNIT Q24H 10/11 1615 AC 10/12 (Porcine) IV 1037 Sodium Chloride 500 ML Metoprolol Succinate 75 MG DAILY 10/11 1356 AC 10/12 PO 0814 Non-Formulary 0 SEE ADMIN CRITERIA 10/11 1400 CAN Medication ANY Polyethylene Glycol 0.5 GAL ONE TIME ONE 10/13 0400 AC PO 10/13 0401 Polyethylene Glycol 0.5 GAL ONCE ONE 10/12 1600 AC PO 10/12 1601 Pravastatin Sodium 40 MG DAILY 10/11 1357 AC 10/12 PO 0814 Sacubitril/Valsartan 1 TAB BID 10/11 2100 AC 10/12 PO 0814 Sodium Chloride 1,000 ML Q10H 10/11 1045 DC 10/11 IV 1048 Warfarin Sodium 1 MG COUMADIN 1700 ONE 10/11 1700 CAN PO 10/11 1701 Last 24 Hrs of Lab/Mickey Results Last 24 Hrs of Labs/Mics: Laboratory Tests 10/12/17 0919: APTT > 120 *H 10/12/17 0745: PT 20.2 H, INR 1.84 H, APTT 88 H 10/12/17 0637: Anion Gap 10, Estimated GFR 57 L, BUN/Creatinine Ratio 18.3, CBC w Diff NO MAN DIFF REQ, RBC 3.43 L, MCV 104.1 H, MCH 35.6 H, MCHC 34.2, RDW 13.9, MPV 8.4, Gran % 57.4, Lymphocytes % 30.5, Monocytes % 10.3 H, Eosinophils % 1.5, Basophils % 0.3, Absolute Granulocytes 2.8, Absolute Lymphocytes 1.5, Absolute Monocytes 0.5, Absolute Eosinophils 0.1, Absolute Basophils 0 10/12/17 0600: PT Cancelled, INR Cancelled 10/12/17 0050: APTT 102 *H 10/11/17 2215: CBC w Diff NO MAN DIFF REQ, RBC 3.58 L, MCV 102.9 H, MCH 35.4 H, MCHC 34.4, RDW 13.9, MPV 8.5, Gran % 61.8, Lymphocytes % 25.6, Monocytes % 11.5 H, Eosinophils % 0.8, Basophils % 0.3, Absolute Granulocytes 3.1, Absolute Lymphocytes 1.3, Absolute Monocytes 0.6, Absolute Eosinophils 0, Absolute Basophils 0 10/11/17 1757: APTT 36 Assessment/Plan Assessment: Mr. Pepe is 87-year-old male with past medical history significant for hypertension, hyperlipidemia, permanent atrial fibrillation on Coumadin, sick sinus syndrome s/p permanent pacemaker, defibrillator, aortic valve replacement bovine valve in 2012, congestive heart failure on Entresto, remote history of renal cancer s/p right nephrectomy, prostate cancer status post radiotherapy, spinal stenosis, Parkinson's disease who presented to ED with chief complaint of new onset rectal bleed. NE examination was done by the ED doctor, no signs of mass. guaiac positive Problem list: Hematochezia Atrial fibrillation on Coumadin Congestive heart failure on Entresto Aortic valve replacement bovine valve 2012 not on antiplatelet Hypertension and hyperlipidemia Plan: -Admit to general medical floor -Vitals every shift -Strict ins and outs -Guaiac all stool -N.p.o. for possible colonoscopy starting at midnight tonight -GI consultation was placed -Monitor CBC closely -At this point patient has only minimal rectal bleed with stable vital signs and stable hemoglobin, his [id number] score is 4 points which represent 4.8% risk of stroke moderate to high risk. I feel that patient stroke risk outweigh bleeding risk at this point and he should be anticoagulated. -Will order warfarin 1 mg -Monitor for any sign of bleeding -Repeat CBC at 10 PM tonight -Cleared for colonoscopy by cardiology -Continue home medication; was confirmed by the pharmacy [facility] at [place] -DVT prophylaxis warfarin, Alps -Diet clear liquid; npo at midnight -Code full Problem List: 1. GI bleed 2. Hypertension 3. Afib Pain Ratin Pain Location: none Pain Goal: Remain pain free Pain Plan: acetaminophen prn Tomorrow's Labs & Rationales: cbc, bep
[2017-10-12 08:42] LABS: ABSOLUTE BASOPHIL COUNT 0 /CUMM (0.0-0.2); ABSOLUTE EOSINOPHIL COUNT 0.1 /CUMM (0.0-0.7); ABSOLUTE GRANULOCYTE CT 2.8 /CUMM (1.4-6.5); ABSOLUTE LYMPH COUNT 1.5 /CUMM (1.2-3.4); ABSOLUTE MONOCYTE COUNT 0.5 /CUMM (0.10-0.60); BASOPHIL % 0.3 % (0.0-2.0); EOSINOPHIL % 1.5 % (0-5); GRANULOCYTE % 57.4 % (42.2-75.2); HEMATOCRIT 35.7 % (42-52); MEAN CORPUSCULAR HGB 35.6 PG (27.0-31.0); MEAN CORPUSCULAR HGB CONC 34.2 G/DL (33.0-37.0); MEAN CORPUSCULAR VOLUME 104.1 FL (80.0-94.0); MEAN PLATELET VOLUME 8.4 FL (7.4-10.4); PLATELET COUNT 162 /CUMM (130-400); RBC DISTRIBUTION WIDTH 13.9 % (11.5-14.5); RED BLOOD CELL CT 3.43 /CUMM (4.70-6.10); WHITE BLOOD CELL COUNT 4.8 /CUMM (4.8-10.8)
[2017-10-12 08:51] LABS: PT 20.2 SEC (9.4-12.5); PTT 88 SEC (25-37)
[2017-10-12 10:33] LABS: PTT > 120 SEC (25-37)
--- NOTE | 2017-10-12 11:15 | Cons- Cardiology ---
General Information and HPI Consulting Request Date of Consult: 10/12/17 Requested By: Antonio Marr MD Reason for Consult: Atrial fibrillation Source of Information: patient, old records History of Present Illness: This is a pleasant 87-year-old male with a past medical history of nonischemic cardiomyopathy, biventricular AICD, sick sinus syndrome, atrial fibrillation on Coumadin, prior bioprosthetic aortic valve replacement, CHF, Parkinson's disease , and prostate cancer status post XRT who presents to [facility] with a chief complaint of bright red blood per rectum; denied any associated chest pain or palpitations. He does have some chronic intermittent shortness of breath which is not increasing; denies worsening lower extremity edema, orthopnea, or paroxysmal nocturnal dyspnea. He felt the amount of blood was small. He has not had a colonoscopy in many years. Denies prior episodes of GI bleeding. Denies any headache, slurring of speech, visual changes, or focal weakness. Allergies/Medications Allergies: Coded Allergies: NO KNOWN ALLERGIES (08/24/14) Home Med List: Carbidopa/Levodopa (Carbidopa-Levodopa 25-100 Tab) 25 MG-100 MG TABLET 1 TAB PO TID BALANCE (Reported) Cholecalciferol (Vitamin D3) (Vitamin D3) (Unknown Strength) CAPSULE (Unknown Dose) PO DAILY SUPPLEMENT (Reported) Cyanocobalamin (Vitamin B-12) (Unknown Strength) TABLET (Unknown Dose) PO DAILY SUPPLEMENT (Reported) Digoxin 125 MCG TABLET 1 TAB PO Q48 HEART (Reported) Furosemide (Lasix) 20 MG TABLET 1 TAB PO DAILY WATER RETENTION (Reported) Gluc 2KCL/Chondr/Tiffany Hy/Hy AC (Glucosamine & Chondroitin Cap) (Unknown Strength ) CAPSULE (Unknown Dose) PO DAILY SUPPLEMENT (Reported) Metoprolol Succinate 50 MG TAB.ER.24H 1.5 TAB PO DAILY HEART/BP (Reported) Multivit-Min/FA/Lycopen/Lutein (Centrum Silver Tablet) 0.4 MG-300 MCG-250 MCG TABLET 1 TAB PO DAILY SUPPLEMENT (Reported) [place]-3 Fatty Acids/Fish Oil ([place] 3 1,000 MG Softgel) (Unknown Strength) CAPSULE (Unknown Dose) PO TID SUPPLEMENT (Reported) Pravastatin Sodium 40 MG TABLET 1 TAB PO DAILY CHOLESTEROL (Reported) Sacubitril/Valsartan (Entresto 49 MG-51 MG Tablet) 49 MG-51 MG TABLET 1 TAB PO BID HEART (Reported) Warfarin Sodium (Coumadin) 1 MG TABLET 1 TAB PO AD BLOOD THINNER (Reported) Current Medications: Current Medications Sig/Daniel Start time Last Medication Dose Route Stop Time Status Admin Acetaminophen 650 MG Q6P PRN 10/11 1315 AC PO Bisacodyl 10 MG AT BEDTIME 10/12 2100 DC PO Bisacodyl 10 MG ONCE ONE 10/12 2000 AC PO 10/12 2000 Bisacodyl 10 MG ONE TIME ONE 10/12 1030 DC PO 10/12 1031 Bisacodyl 10 MG BID 10/11 2100 DC 10/12 PO 10/12 0901 0815 Carbidopa/Levodopa 1 TAB TID 10/11 1400 AC 10/12 PO 0815 Furosemide 20 MG DAILY 10/12 0900 AC 10/12 PO 0815 Heparin Sodium 25,000 UNIT Q24H 10/11 1615 AC 10/12 (Porcine) IV 1037 Sodium Chloride 500 ML Metoprolol Succinate 75 MG DAILY 10/11 1356 AC 10/12 PO 0814 Non-Formulary 0 SEE ADMIN CRITERIA 10/11 1400 CAN Medication ANY Polyethylene Glycol 0.5 GAL ONE TIME ONE 10/13 0400 AC PO 10/13 0401 Polyethylene Glycol 0.5 GAL ONCE ONE 10/12 1600 AC PO 10/12 1601 Pravastatin Sodium 40 MG DAILY 10/11 1357 AC 10/12 PO 0814 Sacubitril/Valsartan 1 TAB BID 10/11 2100 AC 10/12 PO 0814 Sodium Chloride 1,000 ML Q10H 10/11 1045 DC 10/11 IV 1048 Warfarin Sodium 1 MG COUMADIN 1700 ONE 10/11 1700 CAN PO 10/11 1701 Review of Systems Review of Systems: Review of systems as per HPI. The remainder of a 10 point review of systems was reviewed and was otherwise negative. Past History Travel History Traveled to [place] past 21 day No Medical History Blood Transfusion Hx: Yes Neurological: Parkinson's disease EENT: cataracts, DRY EYES Cardiovascular: hypertension, hyperlipidemia, PACEMAKER/DEFIBRILLATOR Respiratory: NONE Gastrointestinal: irritable bowel syndrome Hepatic: NONE Renal: TUMOR ON KIDNEY/REMOVED ONLY HAS 1 FUNCTIONING KIDNEY Musculoskeletal: disk herniation, falls, spinal stenosis Psychiatric: insomnia Endocrine: NONE Blood Disorders: NONE Cancer(s): prostate cancer, R. KIDNEY CANCER [employer]ER/Reproductive: NONE Surgical History Surgical History: spinal fusion, KIDNEY REMOVED SPURS ON SPINE L HIP REPL VALVE REPALCMENT PPM Psychosocial History Services at Home: None Smoking Status: Never Smoked ETOH Use: denies use Illicit Drug Use: denies illicit drug use Exam & Diagnostic Data Vital Signs and I&O Vital Signs Date Time Temp Pulse Resp B/P B/P Pulse O2 O2 Flow FiO2 Mean Ox Delivery Rate 10/12 0900 Room Air 10/12 0814 90 118/62 10/12 0620 98.0 90 18 118/62 95 Room Air 10/11 2223 98.3 76 18 110/80 96 10/11 1515 97.6 94 20 132/68 97 Room Air 10/11 1436 97.8 99 19 141/90 10/11 1402 97.8 99 19 141/90 99 Room Air 10/11 1134 98.4 84 17 149/75 99 Room Air Intake & Output 10/12 1600 10/12 0800 10/12 0000 10/11 1600 10/11 0800 10/11 0000 Intake Total 275 204 Output Total 300 650 Balance -25 -446 Intake, IV 175 104 Intake, Oral 100 100 Number 2 Bowel Movements Output, Urine 300 650 Patient 161 lb Weight Weight Reported by Patient Measurement Method Physical Exam: General: no apparent distress. Alert. Eyes: No obvious scleral icterus. HEENT: No jugular venous distention or abnormal jugular venous pulsations. Cardiovascular: Normal intensity S1/S2. AICD noted Respiratory: No rales or rhonchi Abdomen: Soft, nontender with no guarding or rebound tenderness. Musculoskeletal: No clubbing or cyanosis noted; no edema Skin: warm Neurologic: No gross focal deficits noted. Labs/Mickey Results: Laboratory Tests 10/12 10/12 10/12 0919 0745 0637 Chemistry Sodium (137 - 145 mmol/L) 142 Potassium (3.5 - 5.1 mmol/L) 4.1 Chloride (98 - 107 mmol/L) 106 Carbon Dioxide (22 - 30 mmol/L) 27 Anion Gap (5 - 16) 10 BUN (9 - 20 mg/dL) 22 H Creatinine (0.7 - 1.2 mg/dL) 1.2 Estimated GFR (>60 ml/min) 57 L BUN/Creatinine Ratio (7 - 25 %) 18.3 Coagulation PT (9.4 - 12.5 SEC) 20.2 H INR (0.90 - 1.17) 1.84 H APTT (25 - 37 SEC) > 120 *H 88 H Hematology CBC w Diff NO MAN DIFF REQ WBC (4.8 - 10.8 /CUMM) 4.8 RBC (4.70 - 6.10 /CUMM) 3.43 L Hgb (14.0 - 18.0 G/DL) 12.2 L Hct (42 - 52 %) 35.7 L MCV (80.0 - 94.0 FL) 104.1 H MCH (27.0 - 31.0 PG) 35.6 H MCHC (33.0 - 37.0 G/DL) 34.2 RDW (11.5 - 14.5 %) 13.9 Plt Count (130 - 400 /CUMM) 162 MPV (7.4 - 10.4 FL) 8.4 Gran % (42.2 - 75.2 %) 57.4 Lymphocytes % (20.5 - 51.1 %) 30.5 Monocytes % (1.7 - 9.3 %) 10.3 H Eosinophils % (0 - 5 %) 1.5 Basophils % (0.0 - 2.0 %) 0.3 Absolute Granulocytes (1.4 - 6.5 /CUMM) 2.8 Absolute Lymphocytes (1.2 - 3.4 /CUMM) 1.5 Absolute Monocytes (0.10 - 0.60 /CUMM) 0.5 Absolute Eosinophils (0.0 - 0.7 /CUMM) 0.1 Absolute Basophils (0.0 - 0.2 /CUMM) 0 10/12 10/12 10/11 0600 0050 2215 Coagulation PT Cancelled INR Cancelled APTT (25 - 37 SEC) 102 *H Hematology CBC w Diff NO MAN DIFF REQ WBC (4.8 - 10.8 /CUMM) 5.1 RBC (4.70 - 6.10 /CUMM) 3.58 L Hgb (14.0 - 18.0 G/DL) 12.6 L Hct (42 - 52 %) 36.8 L MCV (80.0 - 94.0 FL) 102.9 H MCH (27.0 - 31.0 PG) 35.4 H MCHC (33.0 - 37.0 G/DL) 34.4 RDW (11.5 - 14.5 %) 13.9 Plt Count (130 - 400 /CUMM) 184 MPV (7.4 - 10.4 FL) 8.5 Gran % (42.2 - 75.2 %) 61.8 Lymphocytes % (20.5 - 51.1 %) 25.6 Monocytes % (1.7 - 9.3 %) 11.5 H Eosinophils % (0 - 5 %) 0.8 Basophils % (0.0 - 2.0 %) 0.3 Absolute Granulocytes (1.4 - 6.5 /CUMM) 3.1 Absolute Lymphocytes (1.2 - 3.4 /CUMM) 1.3 Absolute Monocytes (0.10 - 0.60 /CUMM) 0.6 Absolute Eosinophils (0.0 - 0.7 /CUMM) 0 Absolute Basophils (0.0 - 0.2 /CUMM) 0 10/11 10/11 1757 1040 Chemistry Sodium (137 - 145 mmol/L) 141 Potassium (3.5 - 5.1 mmol/L) 4.5 Chloride (98 - 107 mmol/L) 103 Carbon Dioxide (22 - 30 mmol/L) 28 Anion Gap (5 - 16) 10 BUN (9 - 20 mg/dL) 28 H Creatinine (0.7 - 1.2 mg/dL) 1.3 H Estimated GFR (>60 ml/min) 52 L BUN/Creatinine Ratio (7 - 25 %) 21.5 Glucose (65 - 99 mg/dL) 104 H Calcium (8.4 - 10.2 mg/dL) 9.2 Total Bilirubin (0.2 - 1.3 mg/dL) 0.5 AST (17 - 59 U/L) 27 ALT (21 - 72 U/L) 19 L Alkaline Phosphatase (< 127 U/L) 57 Troponin I (<0.11 ng/ml) 0.01 Total Protein (6.3 - 8.2 g/dL) 6.4 Albumin (3.5 - 5.0 g/dL) 3.6 Globulin (1.9 - 4.2 gm/dL) 2.8 Albumin/Globulin Ratio (1.1 - 2.2 %) 1.3 Vitamin B12 (239 - 931 pg/mL) 648 Folate (2.76 - 20.0 ng/mL) > 20.0 H Coagulation PT (9.4 - 12.5 SEC) 20.9 H INR (0.90 - 1.17) 1.90 H APTT (25 - 37 SEC) 36 Hematology CBC w Diff NO MAN DIFF REQ WBC (4.8 - 10.8 /CUMM) 4.7 L RBC (4.70 - 6.10 /CUMM) 3.51 L Hgb (14.0 - 18.0 G/DL) 12.3 L Hct (42 - 52 %) 36.6 L MCV (80.0 - 94.0 FL) 104.5 H MCH (27.0 - 31.0 PG) 35.1 H MCHC (33.0 - 37.0 G/DL) 33.5 RDW (11.5 - 14.5 %) 13.8 Plt Count (130 - 400 /CUMM) 185 MPV (7.4 - 10.4 FL) 8.5 Gran % (42.2 - 75.2 %) 65.4 Lymphocytes % (20.5 - 51.1 %) 21.0 Monocytes % (1.7 - 9.3 %) 11.8 H Eosinophils % (0 - 5 %) 1.4 Basophils % (0.0 - 2.0 %) 0.4 Absolute Granulocytes (1.4 - 6.5 /CUMM) 3.1 Absolute Lymphocytes (1.2 - 3.4 /CUMM) 1.0 L Absolute Monocytes (0.10 - 0.60 /CUMM) 0.6 Absolute Eosinophils (0.0 - 0.7 /CUMM) 0.1 Absolute Basophils (0.0 - 0.2 /CUMM) 0 Diagnostic Data EKG Results Tracing was personally reviewed and shows a ventricular pacing with likely underlying atrial fibrillation Assessment/Plan Assessment/Plan 1. GI bleeding 2. Persistent atrial fibrillation on Coumadin 3. History of CHF/nonischemic cardiomyopathy with biventricular AICD 4. History of bioprosthetic aortic valve replacement 5. Parkinson's disease 6. History of prostate cancer status post XRT The patient presents with lower GI bleeding and is planned for colonoscopy. As he does not seem to have unstable bleeding and remains in atrial fibrillation agree with bridging therapy while monitoring hemoglobin and hemodynamic status. He shows no evidence of acute coronary syndrome or decompensated congestive heart failure at this time. He is stable for colonoscopy and represents mildly elevated cardiac risk given his cardiac history. Krystian Zuleta MD [facility] Consult Acknowledgment - Thank you for your consult request.
--- NOTE | 2017-10-12 15:01 | PN- Gastroenterology ---
Assessment/Plan GI Assessment/Recommendations: ASSESMENT: 1. Rectal bleeding -- None Further. Patient taking Colonic Preparation 2. Long-term use of anticoagulants. Now on Heparin 3. Acute blood loss anemia. 4. Macrocytic anemia 5. S/P aortic valve replacement -- on Heparin 6. Atrial fibrillation 7. Personal history of renal cell carcinoma 8. Personal history of prostate cancer status post radiation therapy RECOMMENDATIONS: 1. Patient must remain on anticoagulation given aortic valve replacement as well as atrial fibrillation. I spoke with Dr. Marr yesterday and suggested that he speak with Dr. Ware regarding anticoagulation. Patient is now on anticoagulatin with heparin and he received his last dose of coumadin yesterday. 2. I plan to do a colonoscopy on Friday. Patient is currently taking the colonic preparation. He has been given additional laxative to ensure that he is adequately prepared. 3. Given that patient has macrocytic anemia B12 and folate should be checked. 4. Monitor for signs of ongoing GI blood loss and transfuse as needed 5. Heparin must be stopped by 6:00 a.m. Friday morning Subjective Subjective: Patient is taking colonic prep. He has had no further lower GI bleeding. His H &H has remained stable. Had no nausea vomiting or abdominal pain and denies fever or shaking chills. Objective Vital Signs and I&Os Vital Signs Date Time Temp Pulse Resp B/P B/P Pulse O2 O2 Flow FiO2 Mean Ox Delivery Rate 10/12 0900 Room Air 10/12 0814 90 118/62 10/12 0620 98.0 90 18 118/62 95 Room Air 10/11 2223 98.3 76 18 110/80 96 10/11 1515 97.6 94 20 132/68 97 Room Air Intake & Output 10/12 1600 10/12 0400 10/11 1600 10/11 0400 10/10 1600 10/10 0400 Intake Total 755 204 Output Total 300 650 Balance 455 -446 Intake, IV 175 104 Intake, Oral 580 100 Number 6 Bowel Movements Output, Urine 300 650 Patient 161 lb Weight Weight Reported by Patient Measurement Method Physical Exam General Appearance: alert, comfortable Head: atraumatic, normal appearance Respiratory: lungs clear Cardiovascular: regular rate/rhythm, Normal S1 and S2, without Rub, Murmur or Gallop. Abdomen: normal bowel sounds, soft, non-tender Extremities: no edema Neurologic/Psychiatric: alert, oriented x 3, normal mood/affect Skin: normal color, warm/dry Current Medications: Current Medications Sig/Daniel Start time Last Medication Dose Route Stop Time Status Admin Acetaminophen 650 MG Q6P PRN 10/11 1315 AC PO Bisacodyl 10 MG AT BEDTIME 10/12 2100 DC PO Bisacodyl 10 MG ONCE ONE 10/12 2000 AC PO 10/12 2000 Bisacodyl 10 MG ONE TIME ONE 10/12 1030 DC PO 10/12 1031 Bisacodyl 10 MG BID 10/11 2100 DC 10/12 PO 10/12 0901 0815 Carbidopa/Levodopa 1 TAB TID 10/11 1400 AC 10/12 PO 1414 Furosemide 20 MG DAILY 10/12 0900 AC 10/12 PO 0815 Heparin Sodium 25,000 UNIT Q24H 10/11 1615 AC 10/12 (Porcine) IV 1037 Sodium Chloride 500 ML Metoprolol Succinate 75 MG DAILY 10/11 1356 AC 10/12 PO 0814 Polyethylene Glycol 0.5 GAL ONE TIME ONE 10/13 0400 AC PO 10/13 0401 Polyethylene Glycol 0.5 GAL ONCE ONE 10/12 1600 AC PO 10/12 1601 Pravastatin Sodium 40 MG DAILY 10/11 1357 AC 10/12 PO 0814 Sacubitril/Valsartan 1 TAB BID 10/11 2100 AC 10/12 PO 0814 Sodium Chloride 1,000 ML Q10H 10/11 1045 DC 10/11 IV 1048 Warfarin Sodium 1 MG COUMADIN 1700 ONE 10/11 1700 CAN PO 10/11 1701 Results Pertinent Lab Results: Laboratory Tests 10/12 10/12 10/12 0919 0745 0637 Chemistry Sodium (137 - 145 mmol/L) 142 Potassium (3.5 - 5.1 mmol/L) 4.1 Chloride (98 - 107 mmol/L) 106 Carbon Dioxide (22 - 30 mmol/L) 27 Anion Gap (5 - 16) 10 BUN (9 - 20 mg/dL) 22 H Creatinine (0.7 - 1.2 mg/dL) 1.2 Estimated GFR (>60 ml/min) 57 L BUN/Creatinine Ratio (7 - 25 %) 18.3 Coagulation PT (9.4 - 12.5 SEC) 20.2 H INR (0.90 - 1.17) 1.84 H APTT (25 - 37 SEC) > 120 *H 88 H Hematology CBC w Diff NO MAN DIFF REQ WBC (4.8 - 10.8 /CUMM) 4.8 RBC (4.70 - 6.10 /CUMM) 3.43 L Hgb (14.0 - 18.0 G/DL) 12.2 L Hct (42 - 52 %) 35.7 L MCV (80.0 - 94.0 FL) 104.1 H MCH (27.0 - 31.0 PG) 35.6 H MCHC (33.0 - 37.0 G/DL) 34.2 RDW (11.5 - 14.5 %) 13.9 Plt Count (130 - 400 /CUMM) 162 MPV (7.4 - 10.4 FL) 8.4 Gran % (42.2 - 75.2 %) 57.4 Lymphocytes % (20.5 - 51.1 %) 30.5 Monocytes % (1.7 - 9.3 %) 10.3 H Eosinophils % (0 - 5 %) 1.5 Basophils % (0.0 - 2.0 %) 0.3 Absolute Granulocytes (1.4 - 6.5 /CUMM) 2.8 Absolute Lymphocytes (1.2 - 3.4 /CUMM) 1.5 Absolute Monocytes (0.10 - 0.60 /CUMM) 0.5 Absolute Eosinophils (0.0 - 0.7 /CUMM) 0.1 Absolute Basophils (0.0 - 0.2 /CUMM) 0 10/12 10/12 10/11 0600 0050 2215 Coagulation PT Cancelled INR Cancelled APTT (25 - 37 SEC) 102 *H Hematology CBC w Diff NO MAN DIFF REQ WBC (4.8 - 10.8 /CUMM) 5.1 RBC (4.70 - 6.10 /CUMM) 3.58 L Hgb (14.0 - 18.0 G/DL) 12.6 L Hct (42 - 52 %) 36.8 L MCV (80.0 - 94.0 FL) 102.9 H MCH (27.0 - 31.0 PG) 35.4 H MCHC (33.0 - 37.0 G/DL) 34.4 RDW (11.5 - 14.5 %) 13.9 Plt Count (130 - 400 /CUMM) 184 MPV (7.4 - 10.4 FL) 8.5 Gran % (42.2 - 75.2 %) 61.8 Lymphocytes % (20.5 - 51.1 %) 25.6 Monocytes % (1.7 - 9.3 %) 11.5 H Eosinophils % (0 - 5 %) 0.8 Basophils % (0.0 - 2.0 %) 0.3 Absolute Granulocytes (1.4 - 6.5 /CUMM) 3.1 Absolute Lymphocytes (1.2 - 3.4 /CUMM) 1.3 Absolute Monocytes (0.10 - 0.60 /CUMM) 0.6 Absolute Eosinophils (0.0 - 0.7 /CUMM) 0 Absolute Basophils (0.0 - 0.2 /CUMM) 0 10/11 10/11 1757 1040 Chemistry Sodium (137 - 145 mmol/L) 141 Potassium (3.5 - 5.1 mmol/L) 4.5 Chloride (98 - 107 mmol/L) 103 Carbon Dioxide (22 - 30 mmol/L) 28 Anion Gap (5 - 16) 10 BUN (9 - 20 mg/dL) 28 H Creatinine (0.7 - 1.2 mg/dL) 1.3 H Estimated GFR (>60 ml/min) 52 L BUN/Creatinine Ratio (7 - 25 %) 21.5 Glucose (65 - 99 mg/dL) 104 H Calcium (8.4 - 10.2 mg/dL) 9.2 Total Bilirubin (0.2 - 1.3 mg/dL) 0.5 AST (17 - 59 U/L) 27 ALT (21 - 72 U/L) 19 L Alkaline Phosphatase (< 127 U/L) 57 Troponin I (<0.11 ng/ml) 0.01 Total Protein (6.3 - 8.2 g/dL) 6.4 Albumin (3.5 - 5.0 g/dL) 3.6 Globulin (1.9 - 4.2 gm/dL) 2.8 Albumin/Globulin Ratio (1.1 - 2.2 %) 1.3 Vitamin B12 (239 - 931 pg/mL) 648 Folate (2.76 - 20.0 ng/mL) > 20.0 H Coagulation PT (9.4 - 12.5 SEC) 20.9 H INR (0.90 - 1.17) 1.90 H APTT (25 - 37 SEC) 36 Hematology CBC w Diff NO MAN DIFF REQ WBC (4.8 - 10.8 /CUMM) 4.7 L RBC (4.70 - 6.10 /CUMM) 3.51 L Hgb (14.0 - 18.0 G/DL) 12.3 L Hct (42 - 52 %) 36.6 L MCV (80.0 - 94.0 FL) 104.5 H MCH (27.0 - 31.0 PG) 35.1 H MCHC (33.0 - 37.0 G/DL) 33.5 RDW (11.5 - 14.5 %) 13.8 Plt Count (130 - 400 /CUMM) 185 MPV (7.4 - 10.4 FL) 8.5 Gran % (42.2 - 75.2 %) 65.4 Lymphocytes % (20.5 - 51.1 %) 21.0 Monocytes % (1.7 - 9.3 %) 11.8 H Eosinophils % (0 - 5 %) 1.4 Basophils % (0.0 - 2.0 %) 0.4 Absolute Granulocytes (1.4 - 6.5 /CUMM) 3.1 Absolute Lymphocytes (1.2 - 3.4 /CUMM) 1.0 L Absolute Monocytes (0.10 - 0.60 /CUMM) 0.6 Absolute Eosinophils (0.0 - 0.7 /CUMM) 0.1 Absolute Basophils (0.0 - 0.2 /CUMM) 0
[2017-10-12 15:53] VITALS: BP 140/80
[2017-10-12 17:33] LABS: PTT 72 SEC (25-37)
[2017-10-12 22:14] VITALS: BP 120/64
[2017-10-13 05:16] LABS: PTT 58 SEC (25-37)
[2017-10-13 06:04] VITALS: BP 116/60
--- NOTE | 2017-10-13 07:14 | PN- Housestaff ---
Arnulfo Carson 10/13/17 0714: Subjective Follow-up For: rectal bleed Complaints: no complaints Subjective: Patient seen and examined at bedside. Patient in good spirits, prepped for colonoscopy. No acute events overnight, no complaints. Denies any pain. Denies fever/chills/night sweats/chest pain/abdominal pain/urinary symptoms. Review of Systems Constitutional: Reports: see HPI. Objective Last 24 Hrs of Vital Signs/I&O Vital Signs Date Time Temp Pulse Resp B/P B/P Pulse O2 O2 Flow FiO2 Mean Ox Delivery Rate 10/13 0604 98.6 76 18 116/60 97 Room Air 10/12 2214 97.6 109 18 120/64 95 Intake & Output 10/13 1600 10/13 0800 10/13 0000 Intake Total 900 595 713 Output Total 425 Balance 900 170 713 Intake, IV 115 113 Intake, Oral 900 480 600 Number 3 Bowel Movements Output, Urine 425 Patient 160 lb Weight Weight Bed scale Measurement Method Physical Exam General Appearance: Alert, Oriented X3, Cooperative, No Acute Distress Skin: No Rashes, No Breakdown, No Significant Lesion Skin Temp/Moisture Exam: Warm/Dry HEENT: Atraumatic, PERRLA, EOMI, Mucous Membr. moist/pink Neck: Supple, No JVD, No thryomegaly Lymphatic: Axillary nl, Cervical nl Cardiovascular: Regular Rate, Normal S1, Normal S2, No Murmurs, Gallops, Rubs Lungs: Clear to Auscultation, Normal Air Movement Abdomen: Soft, No Tenderness, No Hepatospenomegaly, No Masses Neurological: Normal Gait, Normal Speech, Strength at 5/5 X4 Ext, Normal Tone, Sensation Intact Extremities: No Clubbing, No Cyanosis, No Edema, Normal Pulses, No Tenderness/ Swelling Vascular: Normal Pulses, Pulses Symmetrical Current Medications: Current Medications Sig/Daniel Start time Last Medication Dose Route Stop Time Status Admin Acetaminophen 650 MG Q6P PRN 10/11 1315 AC PO Bisacodyl 10 MG AT BEDTIME 10/12 2100 DC PO Bisacodyl 10 MG ONCE ONE 10/13 1999 DC 10/12 PO 10/12 Carbidopa/Levodopa 1 TAB TID 10/11 1400 AC 10/13 PO 1519 Chlorhexidine 1 GM .STK-MED ONE 10/13 1446 DC Gluconate TOP 10/13 1447 Furosemide 20 MG DAILY 10/12 0900 AC 10/13 PO 0929 Heparin Sodium 25,000 UNIT Q24H 10/13 1645 AC (Porcine) IV Sodium Chloride 500 ML Heparin Sodium 25,000 UNIT Q24H 10/11 1615 DC 10/13 (Porcine) IV 0532 Sodium Chloride 500 ML Metoprolol Succinate 75 MG DAILY 10/11 1356 AC 10/13 PO 0930 Patient Medication 1 ED ONE ONE 10/13 1330 DC 10/13 Teaching ED 10/13 1331 1521 Polyethylene Glycol 0.5 GAL ONE TIME ONE 10/13 0400 DC 10/13 PO 10/13 0401 0408 Pravastatin Sodium 40 MG DAILY 10/11 1357 AC 10/13 PO 0929 Sacubitril/Valsartan 1 TAB BID 10/11 2100 AC 10/13 PO 0928 Last 24 Hrs of Lab/Mickey Results Last 24 Hrs of Labs/Mics: Laboratory Tests 10/13/17 1659: PT Pending, INR Pending 10/13/17 0428: APTT 58 H Assessment/Plan Assessment: Mr. Pepe is 87-year-old male with past medical history significant for hypertension, hyperlipidemia, permanent atrial fibrillation on Coumadin, sick sinus syndrome s/p permanent pacemaker, defibrillator, aortic valve replacement bovine valve in 2012, congestive heart failure on Entresto, remote history of renal cancer s/p right nephrectomy, prostate cancer status post radiotherapy, spinal stenosis, Parkinson's disease who presented to ED with chief complaint of new onset rectal bleed. IA examination was done by the ED doctor, no signs of mass. guaiac positive Problem list: Hematochezia Atrial fibrillation on Coumadin Congestive heart failure on Entresto Aortic valve replacement bovine valve 2012 not on antiplatelet Hypertension and hyperlipidemia Plan: -Admit to general medical floor -Vitals every shift -Strict ins and outs -Guaiac all stool restarted heart healthy diet post-colonoscopy -GI consultation was placed -Monitor CBC closely -At this point patient has only minimal rectal bleed with stable vital signs and stable hemoglobin, his [id number] score is 4 points which represent 4.8% risk of stroke moderate to high risk. I feel that patient stroke risk outweigh bleeding risk at this point and he should be anticoagulated. -Will order warfarin 1 mg -Monitor for any sign of bleeding -Repeat INR tonight -Continue home medication; was confirmed by the pharmacy [facility] at [facility] -DVT prophylaxis warfarin, Alps -HEART HEALTHY DIET -Code full -Monitor INR tonight, dose coumadin accordingly to return to steady state INR Problem List: 1. GI bleed 2. Hypertension 3. Afib Pain Ratin Pain Location: none Pain Goal: Remain pain free Pain Plan: acetaminophen prn Tomorrow's Labs & Rationales: cbc, bep, inr Antonio Marr 10/13/17 1057: Attending MD Review Statement Attending Statement Attending MD Statement: examined this patient, discuss w/resident/PA/BLINTZE ROLLER, agreed w/resident/PA/BLINTZE ROLLER, discussed with family, reviewed EMR data (avail), discussed with nursing, discussed with case mgmt, reviewed images, amended to note Attending Assessment/Plan: Patient planned for EGD/colonoscopy today. He finished most of his Golytely and passed multiple bowel movement. Iv heparin stopped. Resume anticoagulation as per GI if no evidence of bleeding.
--- NOTE | 2017-10-13 14:44 | Proc Note Colonoscopy ---
Colonoscopy Procedure Medical History: unchanged Mental Status: alert/oriented Heart/Lung Eval Prior to Sedation: within normal limits Candidate for Sedation? Yes Date of Last Colonoscopy: Many years ago. Procedure Date: 10/13/17 Procedure Type: colonoscopy w/biopsy Door Hanger: MD Chavez Deborah E. ASA Classification: III Indications: 1. Hematochezia 2. Anemia Instrument (Colonoscope): single channel Meds Received: MAC Patient's Tolerance: good Complications: none Extent Reached: cecum Prep: good Procedure: The patient took a split dose colonic preparation after which they were NPO for an appropriate time prior to procedure. Note: Informed consent was obtained prior to procedure. Risks and benefits of procedure were discussed with patient. Potential complications discussed included perforation, bleeding, abdominal pain, and adverse reaction to medications. It was explained that iany or all of these complications could result in the need for extended hospitalization, emergency surgery, transfusion of packed red blood cells (with the risk of HIV or hepatitis virus), intubation with mechanical ventilation, and possible need for antibiotics. It was further explained that an existing tumor polyp or mucosal abnormality might not be identified at the time of the procedure thus resulting in a missed opportunity for early diagnosis and treatment of a gastrointestinal malignancy or disease with possible interval development of a gastrointestinal cancer or other disease with possible worsening of clinical condition in the interval between endoscopies. It was also discussed that complications are not limited to those listed above. Possible alternatives to endoscopic treatment or evaluation were discussed. All questions were answered. Continuous EKG and blood pressure monitors were attached. Supplemental oxygen was provided with O2 Sat monitoring. Patient was placed in the left lateral decubitus position. A surgical timeout was performed. All persons in the room were identified. All concerns were expressed and answered. Sedation was administered by anesthesia and titrated to comfort prior to starting procdedure. A digital rectal exam was performed. There was normal tone and no masses. The Olympus CHF 180AL video colonoscope was advanced under direct vision to the level of the cecum. The cecum was easily identified by internal landmarks. The cecum, ileocecal valve and appendiceal orifice were easily identified and photo documented. The ileocecal valve was not intubated. With colonoscope in the forward-viewing position it was slowly withdrawn and all areas were reinspected. The cecum, ascending colon, hepatic flexure, transverse colon, splenic flexure, descending colon, sigmoid colon, rectosigmoid junction, rectum and retroflexed view of the rectum all fully examined. Retroflexed view of the rectum revealed a normal mucosal and vascular pattern with the exception of a well-circumscribed area of ectatic vessels consistent with radiation proctitis. A biopsy was obtained from this area. Given that patient has only had one episode of hematochezia and does not have frequent bleeding, the area was not treated with APC for control of bleeding. There was a normal mucosal and vascular pattern throughout the colon. There were small and medium sized diverticuli with rare larger diverticuli throughout the entire colon. Diverticulosis was most severe in the sigmoid and descending colon. Air was suctioned as the scope was withdrawn from the colon. Patient tolerated the procedure well. Cecal withdrawal time: 10 min Colonic preparation: [place] Prep Scale Total: 9. Difficulty of Colonoscopy: Not difficult EBL: None Specimens Removed: Rectal biopsy Findings: 1. Radiation proctitis 2. Gamino-Diverticulosis Impression: 1. Radiation proctitis 2. Gamino-Diverticulosis Recommendations: 1. Await pathology 2. Patient have high-fiber diet 3. If patient has repeated hematochezia can consider treatment of area of radiation proctitis with argon plasma coagulation
--- NOTE | 2017-10-13 18:39 | PN- Cardiology ---
Subjective Subjective: Patient denies chest pain, palpitations, dyspnea. Patient denies any further episodes of GI bleeding. Objective Vital Signs and I&Os Vital Signs Date Time Temp Pulse Resp B/P B/P Pulse O2 O2 Flow FiO2 Mean Ox Delivery Rate 10/13 0604 98.6 76 18 116/60 97 Room Air 10/12 2214 97.6 109 18 120/64 95 Intake & Output 10/13 1600 10/13 0800 10/13 0000 10/12 1600 10/12 0800 10/12 0000 Intake Total 900 595 713 980 275 204 Output Total 425 550 300 650 Balance 900 170 713 430 -25 -446 Intake, IV 115 113 0 175 104 Intake, Oral 900 480 600 980 100 100 Number 3 4 2 Bowel Movements Output, Urine 425 550 300 650 Patient 72.603 kg Weight Weight Bed scale Measurement Method Physical Exam: General: no apparent distress HEENT: NCAT, NO JVD Heart: s1s2, irregular rhythm, +systolic murmur at base, +ICD in place Lungs: CTA b/l Abd: soft, nt Ext: no peripheral edema Current Medications: Current Medications Sig/Daniel Start time Last Medication Dose Route Stop Time Status Admin Acetaminophen 650 MG Q6P PRN 10/11 1315 AC PO Bisacodyl 10 MG AT BEDTIME 10/12 2100 DC PO Bisacodyl 10 MG ONCE ONE 10/13 1999 DC 10/12 PO 10/12 2000 195 Carbidopa/Levodopa 1 TAB TID 10/11 1400 AC 10/13 PO 1519 Chlorhexidine 1 GM .STK-MED ONE 10/13 1446 DC Gluconate TOP 10/13 1447 Furosemide 20 MG DAILY 10/12 0900 AC 10/13 PO 0929 Heparin Sodium 25,000 UNIT Q24H 10/13 1645 AC (Porcine) IV Sodium Chloride 500 ML Heparin Sodium 25,000 UNIT Q24H 10/11 1615 DC 10/13 (Porcine) IV 0532 Sodium Chloride 500 ML Metoprolol Succinate 75 MG DAILY 10/11 1356 AC 10/13 PO 0930 Patient Medication 1 ED ONE ONE 10/13 1330 DC 10/13 Teaching ED 10/13 1331 1521 Polyethylene Glycol 0.5 GAL ONE TIME ONE 10/13 0400 DC 10/13 PO 10/13 0401 0408 Pravastatin Sodium 40 MG DAILY 10/11 1357 AC 10/13 PO 0929 Sacubitril/Valsartan 1 TAB BID 10/11 2100 AC 10/13 PO 0928 Results Last 48 Hrs of Labs/Mics: Laboratory Tests 10/13/17 1659: PT Pending, INR Pending 10/13/17 0428: APTT 58 H 10/12/17 1635: APTT 72 H 10/12/17 0919: APTT > 120 *H 10/12/17 0745: PT 20.2 H, INR 1.84 H, APTT 88 H 10/12/17 0637: Anion Gap 10, Estimated GFR 57 L, BUN/Creatinine Ratio 18.3, CBC w Diff NO MAN DIFF REQ, RBC 3.43 L, MCV 104.1 H, MCH 35.6 H, MCHC 34.2, RDW 13.9, MPV 8.4, Gran % 57.4, Lymphocytes % 30.5, Monocytes % 10.3 H, Eosinophils % 1.5, Basophils % 0.3, Absolute Granulocytes 2.8, Absolute Lymphocytes 1.5, Absolute Monocytes 0.5, Absolute Eosinophils 0.1, Absolute Basophils 0 10/12/17 0600: PT Cancelled, INR Cancelled 10/12/17 0050: APTT 102 *H 10/11/17 2215: CBC w Diff NO MAN DIFF REQ, RBC 3.58 L, MCV 102.9 H, MCH 35.4 H, MCHC 34.4, RDW 13.9, MPV 8.5, Gran % 61.8, Lymphocytes % 25.6, Monocytes % 11.5 H, Eosinophils % 0.8, Basophils % 0.3, Absolute Granulocytes 3.1, Absolute Lymphocytes 1.3, Absolute Monocytes 0.6, Absolute Eosinophils 0, Absolute Basophils 0 Recent Imaging Studies: colonocscopy 10/13 Impression: 1. Radiation proctitis 2. Gamino-Diverticulosis Recommendations: 1. Await pathology 2. Patient have high-fiber diet 3. If patient has repeated hematochezia can consider treatment of area of radiation proctitis with argon plasma coagulation Assessment/Plan Assessment/Plan 1. GI bleeding 2/2 radiation proctitis 2. Persistent atrial fibrillation on Coumadin 3. History of CHF/nonischemic cardiomyopathy with biventricular AICD 4. History of bioprosthetic aortic valve replacement 5. Parkinson's disease 6. History of prostate cancer status post XRT Colonoscopy today showed radiation proctitis. Patient denies further bleeding. Patient can be restarted on home Coumadin dose, goal INR 23. Otherwise continue current cardiac regimen. Please ensure the patient follows up with Dr. Dunn, his regular accountant bookkeeper. Continue telemetry? Not applicable (pt not on tele)
[2017-10-13 19:05] LABS: PT 19.2 SEC (9.4-12.5)
[2017-10-13 21:40] VITALS: BP 110/62
[2017-10-13 23:23] LABS: PTT 68 SEC (25-37)
[2017-10-14 06:20] VITALS: BP 130/76
[2017-10-14 08:28] LABS: PT 21.1 SEC (9.4-12.5)
[2017-10-14 08:33] VITALS: BP 130/76
[2017-10-14 08:52] LABS: ABSOLUTE BASOPHIL COUNT 0 /CUMM (0.0-0.2); ABSOLUTE GRANULOCYTE CT 1.9 /CUMM (1.4-6.5); ABSOLUTE MONOCYTE COUNT 0.4 /CUMM (0.10-0.60); MEAN PLATELET VOLUME 8.9 FL (7.4-10.4); WHITE BLOOD CELL COUNT 3.5 /CUMM (4.8-10.8)
[2017-10-14 09:36] LABS: ABSOLUTE EOSINOPHIL COUNT 0.1 /CUMM (0.0-0.7); ABSOLUTE LYMPH COUNT 1.2 /CUMM (1.2-3.4); BASOPHIL % 0.4 % (0.0-2.0); EOSINOPHIL % 1.5 % (0-5); GRANULOCYTE % 54.8 % (42.2-75.2); MEAN CORPUSCULAR HGB 35.2 PG (27.0-31.0); MEAN CORPUSCULAR HGB CONC 33.7 G/DL (33.0-37.0); MEAN CORPUSCULAR VOLUME 104.4 FL (80.0-94.0); PLATELET COUNT 118 /CUMM (130-400); RBC DISTRIBUTION WIDTH 13.8 % (11.5-14.5); RED BLOOD CELL CT 2.68 /CUMM (4.70-6.10)
--- NOTE | 2017-10-14 11:13 | Patient Discharge Instructions ---
Discharge Instructions General Discharge Information Special Instructions: - Please follow up in INR clinic for your coumadin dose. - Please f/u w/ Dr. Chavez for your pathology report. - Continue high fiber diet. Acute Coronary Syndrome Inclusion Criteria At DC or during hospital stay patient has or had the following: ACS DIAGNOSIS No Discharge Core Measures Meds if any: Prescribed or Continued at Discharge Meds if any: NOT Prescribed or Continued at Discharge Congestive Heart Failure Inclusion Criteria At DC or during hospital stay patient has or had the following: CHF DIAGNOSIS No Discharge Core Measures Meds if any: Prescribed or Continued at Discharge Meds if any: NOT Prescribed or Continued at Discharge Cerebrovascular accident Inclusion Criteria At DC or during hospital stay patient has or had the following: CVA/TIA Diagnosis No Discharge Core Measures Meds if any: Prescribed or Continued at Discharge Meds if any: NOT Prescribed or Continued at Discharge Venous thromboembolism Inclusion Criteria VTE Diagnosis No VTE Type NONE VTE Confirmed by (Test) NONE Discharge Core Measures - Per Current guidelines, there needs to be overlap - treatment for the first 5 days of Warfarin therapy. - If discharged on Warfarin prior to 5 days of - overlap therapy, the patient will need to be - assessed for post discharge needs including - *Post discharge parental anticoagulation - *Warfarin and/or parental anticoagulation education - *Follow up date to check INR post discharge At least 5 days overlap therapy as Inpatient No Meds if any: Prescribed or Continued at Discharge Note: Overlap Therapy is Warfarin and Anticoagulant Meds if any: NOT Prescribed or Continued at Discharge
--- NOTE | 2017-10-14 11:39 | PN- Cardiology ---
Subjective Subjective: Patient feels well. He is anxious to be discharged. He denies chest pain or shortness of breath. Review of Systems: Eyes no blurred or double vision Ears no deafness or ringing Nose and throat no recurrent sinusitis Lungs per history of present illness Heart per history of present illness Abdomen no nausea vomiting Musculoskeletal occasional muscle and joint pains Psych no anxiety or depression Neuro without recurrent headache or seizures Endocrine no heat or cold intolerance Objective Vital Signs and I&Os Vital Signs Date Time Temp Pulse Resp B/P B/P Pulse O2 O2 Flow FiO2 Mean Ox Delivery Rate 10/14 832 98.0 86 18 130/76 10/14 0620 98.0 86 18 130/76 97 Room Air 10/13 2140 97.8 92 18 110/62 99 Intake & Output 10/14 1600 10/14 0810/14 0000 10/13 1600 10/13 0800 10/13 0000 Intake Total 496 496 900 595 713 Output Total 500 425 Balance -4 496 900 170 713 Intake, IV 136 136 115 113 Intake, Oral 360 360 900 480 600 Number 3 Bowel Movements Output, Urine 500 425 Patient 160 lb 160 lb Weight Weight Bed scale Bed scale Measurement Method Physical Exam: Patient is a well-developed well-nourished male appearing in no acute distress HEENT is unremarkable Neck is supple there is no JVD Lungs are clear Heart regular rhythm S1 and S2 are normal no gallops or rubs 1/6 systolic ejection murmur left sternal border Abdomen bowel sounds positive Extremities without edema Current Medications: Current Medications Sig/Daniel Start time Last Medication Dose Route Stop Time Status Admin Acetaminophen 650 MG Q6P PRN 10/11 1315 AC PO Carbidopa/Levodopa 1 TAB TID 10/11 1400 AC 10/14 PO 0833 Chlorhexidine 1 GM .STK-MED ONE 10/13 1446 DC Gluconate TOP 10/13 1447 Furosemide 20 MG DAILY 10/12 0900 AC 10/14 PO 0833 Heparin Sodium 25,000 UNIT Q24H 10/13 1645 DC 10/13 (Porcine) IV 2036 Sodium Chloride 500 ML Metoprolol Succinate 75 MG DAILY 10/11 1356 AC 10/14 PO 0833 Patient Medication 1 ED ONE ONE 10/13 1330 DC 10/13 Teaching ED 10/13 1331 1521 Pravastatin Sodium 40 MG DAILY 10/11 1357 AC 10/14 PO 0833 Sacubitril/Valsartan 1 TAB BID 10/11 2100 AC 10/14 PO 33 Warfarin Sodium 1 MG ONCE ONE 10/14 1200 AC PO 10/14 1201 Results Last 48 Hrs of Labs/Mics: Laboratory Tests 10/14/17 0710: Anion Gap 12, Estimated GFR 57 L, BUN/Creatinine Ratio 16.7, PT 21.1 H, INR 1.92 H, CBC w Diff NO MAN DIFF REQ, RBC 2.68 L, MCV 104.4 H, MCH 35.2 H, MCHC 33.7, RDW 13.8, MPV 8.9, Gran % 54.8, Lymphocytes % 33.0, Monocytes % 10.3 H, Eosinophils % 1.5, Basophils % 0.4, Absolute Granulocytes 1.9, Absolute Lymphocytes 1.2, Absolute Monocytes 0.4, Absolute Eosinophils 0.1, Absolute Basophils 0 10/13/17 2250: APTT 68 H 10/13/17 1659: PT 19.2 H, INR 1.75 H 10/13/17 0428: APTT 58 H 10/12/17 1635: APTT 72 H Assessment/Plan Assessment/Plan 1. Severe COPD on chronic oxygen with exacerbation/hypercapnia 2. Paroxysmal atrial fibrillation currently on Eliquis 3. History of hypertension 4. Nicotine dependence 5. Chronic pain syndrome on chronic opioid therapy Recommendations 1. Patient is stable from a cardiac standpoint for discharge 2. Will plan to follow-up as an outpatient. 3. Continue current medications Continue telemetry? No
--- NOTE | 2017-10-14 13:59 | PN- Housestaff ---
Subjective Follow-up For: New onset GI bleed Complaints: no complaints Subjective: Patient patient was seen and examined in the bed. Patient was sitting in the bed comfortably. Oriented to time place person. There is no acute distress. Patient denies headache, blurred vision, chest pain, palpitation, loose motion, burning micturition, fever and chills. Review of Systems Constitutional: Denies: see HPI. Objective Last 24 Hrs of Vital Signs/I&O Vital Signs Date Time Temp Pulse Resp B/P B/P Pulse O2 O2 Flow FiO2 Mean Ox Delivery Rate 10/14 0833 98.0 86 18 130/76 10/14 0620 98.0 86 18 130/76 97 Room Air 10/13 2140 97.8 92 18 110/62 99 Intake & Output 10/14 1600 10/14 0800 10/14 0000 Intake Total 496 496 Output Total 250 500 Balance -250 -4 496 Intake, IV 136 136 Intake, Oral 360 360 Output, Urine 250 500 Patient 160 lb Weight Weight Bed scale Measurement Method Physical Exam General Appearance: Alert, Oriented X3, Cooperative, No Acute Distress Skin: No Rashes Assessment/Plan Assessment: 87-year-old male past medical history significant for atrial fibrillation, hyperlipidemia, hypertension, sick sinus syndrome status post pacemaker, defibrillator, aortic valve replacement, congestive heart failure, remote history of renal cancer post radiotherapy, Parkinson presented to the emergency department with the complaint of rectal bleeding. Problem list: -Hematochezia -On atrial fibrillation and Coumadin -Congestive heart failure -Aortic wall replacement -Hypertension hyperlipidemia PLAN; -Patient is stable for discharge -GI consultation done they advised high-fiber diet and plan to repeat colonoscopy if there was hematochezia and bill to APC (argon plasma coagulation) -Discharge today Problem List: 1. GI bleed 2. Afib 3. Radiation proctitis 4. Hypertension Pain Ratin Pain Location: no pain Pain Goal: Remain pain free Pain Plan: no pain Tomorrow's Labs & Rationales: patient is going to be discharged
--- NOTE | 2017-10-14 14:07 | Discharge Summary ---
Visit Information Visit Dates Admission Date: 10/11/17 Discharge Date: 10/14/17 Hospital Course Course Attending Physician: Tejinder JOSE,Antonio Primary Care Physician: Gina JOSE,Dorian Other Care Providers: Scott JOSE, Shonda Mratins MD, Tripp Campos MD, [place] [facility] Course: Mr. 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 Patient reported regular health state until this morning when he woke up and found small spot of bright red blood in his underwear. Patient denied any previous history of rectal bleeding or hemorrhoids. Denied any abdominal pain, history of diarrhea or constipation however reported loose stools over the last couple of days. No change in the stool caliber or melena. Patient denied any history of weight loss, unexplained fatigue or weakness. His last colonoscopy was over 25 years ago and was normal. Patient denied any family history of colon cancer. Patient is on Coumadin for atrial fibrillation, INR was 1.4 on Friday and was asked to take 2 mg instead of 1 mg on Friday, patient reported taking warfarin 1 mg for the rest of the week. Patient denied any dizziness, palpitation, shortness of breath, chest pain. After making patient's INR subtherapeutic, and colonoscopy was performed, which showed radiation proctitis and queen-diverticulosis. Patient was discharged when his INR returned to therapeutic levels. Vitals: T 97.8, P 90, R 18, BP 130/80, 97% RA Physical Exam: General Appearance Alert, Oriented X3, Cooperative, No Acute Distress Skin No Rashes, No Breakdown, No Significant Lesion Skin Temp/Moisture Exam: Warm/Dry HEENT Atraumatic, PERRLA, EOMI, Mucous Membr. moist/pink Neck Supple, No JVD Cardiovascular Normal S1, Normal S2, No Murmurs, irregular irregular Lungs Clear to Auscultation, Normal Air Movement Abdomen Normal Bowel Sounds, Soft, No Tenderness Neurological Normal Speech, Strength at 5/5 X4 Ext, Normal Tone, Sensation Intact, Cranial Nerves 3-12 NL, Reflexes 2+ Extremities No Clubbing, No Cyanosis, Normal Pulses, bilateral +1 pedal edema Labs were pertinent to H&H 12.3/36.6 at baseline, sodium 141, potassium 4.5, BUN /creatinine 28/1.3 baseline creatinine, INR 1.9 tropes negative Problem list Hematochezia Atrial fibrillation on Coumadin Congestive heart failure on Entresto Aortic valve replacement bovine valve 2012 not on antiplatelet Hypertension and hyperlipidemia Plan -Admit to general medical floor -Vitals every shift -Strict ins and outs -Guaiac all stool -N.p.o. for possible colonoscopy -GI consultation was placed -Monitor CBC closely -At this point patient has only minimal rectal bleed with stable vital signs and stable hemoglobin, his [id number] score is 4 points which represent 4.8% risk of stroke moderate to high risk. I feel that patient stroke risk outweigh bleeding risk at this point and he should be anticoagulated. -Will order warfarin 1 mg -Monitor for any sign of bleeding -Repeat CBC at 10 PM tonight -Obtain cardiology consultation -Continue home medication was confirmed by the pharmacy [facility] at [place] -DVT prophylaxis warfarin, Alps -Diet n.p.o. pending colonoscopy -Code full Allergies: Coded Allergies: NO KNOWN ALLERGIES (08/24/14) Pertinent Lab Results: Colonoscopy demonstrating radiation proctitis and queen-diverticulosis Disposition Summary Disposition Principal Diagnosis: Hematochezia Additional Diagnosis: Hypertension, Afib Discharge Disposition: home or self care Discharge Instructions General Discharge Information Code Status: Full Code Patient's Diet: Full as tolerated Patient's Activity: Regular as tolerated Follow-Up Instructions/Appts: - Please follow up in INR clinic for your coumadin dose. - Please f/u w/ Dr. Chavez for your pathology report. - Continue high fiber diet. Medications at Discharge Discharge Medications: Continue taking these medications: Warfarin Sodium (Coumadin) 1 MG TABLET 1 Tablet ORAL As Directed Comments: Last Taken:10/14/17 Time:1PM Digoxin (Digoxin) 125 MCG TABLET 1 Tablet ORAL EVERY 48 HOURS (Every 2 days) Comments: NOT GIVEN Metoprolol Succinate (Metoprolol Succinate) 50 MG TAB.ER.24H 1.5 Tablet ORAL DAILY Comments: Last Taken:10/14/17 Time:0830 Pravastatin Sodium (Pravastatin Sodium) 40 MG TABLET 1 Tablet ORAL DAILY Comments: Last Taken:10/14/17 Time:08 Multivit-Min/FA/Lycopen/Lutein (Centrum Silver Tablet) 0.4 MG-300 MCG-250 MCG TABLET 1 Tablet ORAL DAILY Comments: NOT GIVEN Cyanocobalamin (Vitamin B-12) (Unknown Strength) TABLET Unknown Dose ORAL DAILY Comments: NOT GIVEN IN HOSPITAL Cholecalciferol (Vitamin D3) (Vitamin D3) (Unknown Strength) CAPSULE Unknown Dose ORAL DAILY Comments: NOT GIVEN Winston-3 Fatty Acids/Fish Oil (Winston 3 1,000 MG Softgel) (Unknown Strength) CAPSULE Unknown Dose ORAL THREE TIMES DAILY Comments: NOT GIVEN Carbidopa/Levodopa (Carbidopa-Levodopa 25-100 Tab) 25 MG-100 MG TABLET 1 Tablet ORAL THREE TIMES DAILY Qty = 270 Comments: Last Taken:10/14/17 Time:08 Sacubitril/Valsartan (Entresto 49 MG-51 MG Tablet) 49 MG-51 MG TABLET 1 Tablet ORAL TWICE DAILY Comments: NOT GIVEN Gluc 2KCL/Chondr/Tiffany Hy/Hy AC (Glucosamine & Chondroitin Cap) (Unknown Strength ) CAPSULE Unknown Dose ORAL DAILY Comments: NOT GIVN Furosemide (Lasix) 20 MG TABLET 1 Tablet ORAL DAILY Comments: Last Taken:10/14/17 Time:08 Copies To: Gina JOSE,Dorian
== END 2017-10-14 12:55 | DRG 378 ==
LOC: ERH 09:42 → 2NA 12:07 → ERHI 12:07 → ENRESERV 12:44 → ENTRNSPT 14:49 → EDTRNSPTSTS 15:01 → 2NA 15:11 → CMPTRNSPT 15:18 → ENPENDDIS 10-14 11:15 → ENTRNSPT 10-14 12:32 → EDTRNSPT 10-14 12:48 → EDTRNSPTSTS 10-14 12:48 → CMPTRNSPT 10-14 12:50 → 2NA 10-14 12:55
PROVIDERS: Emergency Medicine; General Practice; Internal Medicine; Student in an Organized Health Care Education/Training Program
PROC: 0DDP8ZX Extraction of Rectum, Via Natural or Artificial Opening Endoscopic, Diagnostic (ICD-10-PCS; principal; 2017-10-13)
DX: K92.2 Gastrointestinal hemorrhage, unspecified (principal); D62 Acute posthemorrhagic anemia; I42.8 Other cardiomyopathies; K62.7 Radiation proctitis; Z79.01 Long term (current) use of anticoagulants; E78.5 Hyperlipidemia, unspecified; Z95.810 Presence of automatic (implantable) cardiac defibrillator; Z85.46 Personal history of malignant neoplasm of prostate; Z85.528 Personal history of other malignant neoplasm of kidney; Z90.5 Acquired absence of kidney; I48.2 Chronic atrial fibrillation; Z95.3 Presence of xenogenic heart valve; G20 Parkinson's disease; D53.9 Nutritional anemia, unspecified; I11.0 Hypertensive heart disease with heart failure; I50.9 Heart failure, unspecified; K92.1 Melena; I49.5 Sick sinus syndrome; Z98.1 Arthrodesis status; Z96.641 Presence of right artificial hip joint
CPT/HCPCS: 2NAP; 36415; 36592; 82436; 93005; 93010; J1644